=== PATIENT | female | born 1965 | race Caucasian/White ===

== ENCOUNTER 2024-02-01 09:15 | Outpatient (RCR) | payer BC, SELFPAY ==
--- NOTE | 2024-02-01 10:15 | BH.SGPN.GN ---
Behaviors/Verbalizations/Mental Status: []Pt alert and oriented, neatly dressed and groomed. Eye contact good. Motor activity appropriate. Speech within normal limits. Affect congruent, mood anxious. Thoughts linear, logical, no signs of hallucinations or delusions. Client Response/Progress/Benefit: [] Pt responded well to session, contributing to discussion, and engaged during the activity. Group identified the benefits of change which included: increased confidence, improving mental health, and making progress. Worked with the group to identify barriers to change, which included: uncomfortable emotions such as anxiety and fear, lack of energy, worried about what others will think, and fear of the unknown. Pt participated along with group in activity where they identified and discussed the emotions related to change. Pt connected with peers that one can have many conflicting emotions when faced with change. Benefited from increased awareness and understanding of emotions, benefits, and barriers related to change. Will continue PHP tx to prevent decompensation, improve daily functioning, and gain healthy coping skills. ? Narrative Note: []
--- NOTE | 2024-02-01 11:10 | BH.SGPN.GN ---
Behaviors/Verbalizations/Mental Status: [] Client alert and oriented, casually dressed and groomed. Eye contact good. Motor activity appropriate. Speech within normal limits. Affect congruent, mood depressed and anxious. Thoughts linear, logical, no signs of hallucinations or delusions. Client Response/Progress/Benefit: [] Client responded well to session, attentive. Did well to process activity and work with group to relate the strategies used to overcome barriers in the activity to managing change in own life. Client identified a change they would like to make as improving her self-talk. Client identified currently being in contemplation stage for this particular change. Client stated their goal is to practice using positive self-talk daily. Appeared to benefit from identifying a small goal to work towards. Client will continue PHP tx to prevent decompensation, decrease thoughts that lead to depressive symptoms and increase overall functioning. Narrative Note: []
--- NOTE | 2024-02-01 13:25 | BH.MTP ---
Master Treatment Plan Patient Information Program Physician:: Dr. Jarquin Primary Therapist:: Samia Mejia [facility] Psychiatric Diagnoses Psychiatric Diagnoses:: 1. Major depressive disorder, recurrent, severe without psychosis 2. Generalized anxiety disorder Diagnosis Code(s):: F32.2 Estimated LOS Estimated LOS (in weeks):: 1 Problem/Goal #1 Problem/Goal #1 Stated Goal:: Client will reduce depression, feelings of hopelessness, and anhedonia. Description of Barriers: Pt recently reporting sensitivities to different medications. Pt's apathy, anhedonia, anxious thoughts, and uncontrollable worries. Functional Impact: Patient is a 58-year-old female with a history of depression, anxiety and panic attacks who was referred by her outpatient counselor for worsening symptoms of depression and anxiety and inability to function at home or at work. The patient has had worsening symptoms of depression and anxiety since about 7 weeks ago after a severe panic attack. She has not worked part-time for the past 2 weeks due to her mental health symptoms. She was staying in bed all day long for the last 7 weeks. She endorses sadness, hopelessness, worthlessness, crying spells, anhedonia, biological disruption of appetite and has lost 10 pounds in 2 months. Objectives Objective #1: Stated Objective: Client will learn and utilize 2-3 healthy coping strategies to manage depressive symptoms. Interventions: Therapist will utilize CBT techniques to assist client with understanding the connection between thoughts, feelings and behaviors. Education will be provided on behavioral activation. Therapist will assist client in learning internal coping strategies to manage depressive symptoms, along with helping client identify triggers. Discharge Criteria: Client will have achieved this goal when can verbalize and has practiced at least 2 healthy coping strategies that successfully manage depressive symptoms. Target Date: 02/08/24 Problem/Goal #2 Problem/Goal #2 Stated Goal:: Stabilize anxiety level while increasing ability to function and decreasing ruminative thoughts on a daily basis. Description of Barriers: Pt recently reporting sensitivities to different medications. Pt's apathy, anhedonia, anxious thoughts, and uncontrollable worries. Functional Impact: Patient is a 58-year-old female with a history of depression, anxiety and panic attacks who was referred by her outpatient counselor for worsening symptoms of depression and anxiety and inability to function at home or at work. The patient has had worsening symptoms of depression and anxiety since about 7 weeks ago after a severe panic attack. She has not worked part-time for the past 2 weeks due to her mental health symptoms. She was staying in bed all day long for the last 7 weeks. She endorses sadness, hopelessness, worthlessness, crying spells, anhedonia, biological disruption of appetite and has lost 10 pounds in 2 months. Objectives Objective #1: Stated Objective: Client will learn and implement 2-3 calming skills to reduce overall anxiety and manage anxiety symptoms. Interventions: Therapist and group sessions will help client identify physiological warning signs of anxiety, increase awareness of thoughts that increase anxiety, and identify behaviors that reinforce anxious symptoms. Group and individual counseling will teach client calming skills to help manage anxious symptoms. Discharge Criteria: Client will have achieved this goal when can verbalize and consistently utilize at least 2 calming strategies that client reports help decrease anxious symptoms. Target Date: 02/08/24
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
--- NOTE | 2024-02-01 14:27 | BH.MDN_ITS ---
Multi-Disciplinary Note Note 60-min Individual: Time Started:: 12:05 Date: 02/01/24 Purpose of session/treatment goals addressed:: Purpose of session was to build rapport, gather background information, and establish goals for partial hospitalization program. Eye Contact:: Fair Motor Activity:: Restless Appearance:: Casual Speech:: Appropriate Mood:: Anxious, Depressed and Other (Tearful) Affect:: Labile Thoughts:: Linear, Logical and No evidence of hallucinations/delusions noted Staff Interventions:: psychoeducation on: (Cognitive triangle and behavior activation), CBT techniques, mindfulness skills (Reviewed), rapport building, strengths perspective, treatment planning, goal setting and taught coping skills Client Response:: Client shared she is feeling lost and hopeless which is why she is seeking treatment. Client reported she wants to get back to her. Client stated her baseline is being funny, socializing with others, family oriented, enjoying going to the [employer], cooking, and engaging in various hobbies. Client stated currently she is not doing any of those things because she is depressed, anxious, sad, feels like something is wrong with my mind, isolating, and no motivation. Client reported most days she is lying in bed or laying around doing nothing because she either is too anxious or too depressed. Client reported she does take a as needed anxiety med every morning which then puts her right back to sleep. Client stated but if she does not take that medication she will feel extremely nervous and anxious and shaky. Client shared she has a supportive and supportive children. Client describes her childhood as positive. Client stated her first experience of depression and anxiety was when she went through her divorce in 1998 after 11 years of marriage. Client stated she was then put on Celexa which allowed her to live a normal life and to seemingly stopped working in July 2023. Client reported that when she first had her severe panic attack in things started kind of decompensating slowly. Client stated her psychiatrist Dr. Walden left his practice and she started with Dr. Thomas in October 2023. Client reported she was put on new medication since the Celexa was not working 7 weeks ago and really does not think it is working. Client stated she has never been this depressed in her entire life. Client shared she does struggle with anxiety throughout her life especially severe worries about her children thinking something bad is going to happen to them. Client reported since her son moved 5 years ago to different state she would say about 8680% of the time during the day would worry about him. Client stated since struggling she does feel like her worries are consumed about if her kids are okay which does lead to reassurance seeking by reaching out to them. client stated she is not sure if there are any stressors that triggered some of these worsening mental health. 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 Therapist explained at this point it is most important to think about the here and now to improve her daily functioning and then when she is feeling a little more stable can explore possible stressors that they can work together to mitigate. Client connected with psychoeducation about cognitive triangle and behavior activation. Client seemed to connect with importance of engaging in at least 1 activity that she used to enjoy in order to activate any positive or more neutral emotions and thoughts. Client struggled with identifying one thing she could do today because she stated she just wants to go home and lay on the couch. Therapist reminded client that she reported she did not want to show up to [facility] today but is happy she got out of bed and did something different than what her depressed and anxious brain was telling her to do. Therapist encouraged client to either do one chore or one activity she used to enjoy to work on behavior activation. Risks/Concerns:: Denies suicidal ideation, plan, or intention. Future oriented. No history of suicide attempts. Progress Toward Goals/Plan:: No progress observed given first day in PHP. Client has had significant decompensation since her Celexa stopped working and the new medications that she was put on about 7 weeks ago per client are not working. Client stated she is not functioning at home with completing chores or getting anything done like cooking. Client stated she stopped going to meet her friends out for breakfast. Client is not excited to do anything in the upcoming summer which would include them going to very like house to spend time with family. Client reporting feeling less about her future because she does not think she can function if she continues to feel this way. Client to continue PHP to improve daily functioning, increase healthy coping, and prevent decompensation. Time Stopped:: 13:00
--- NOTE | 2024-02-02 09:00 | BH.SGPN.GN ---
Behaviors/Verbalizations/Mental Status: []Eye contact is fair. Motor activity is restless. Appearance is casual. Speech is Appropriate. Mood is anxious. Affect is congruent. Thoughts are linear and logical. No evidence of psychosis. Reviewed daily check in sheet and denies suicidal thoughts or intention. Client Response/Progress/Benefit: [] Client responded well to session AEB listening to others and sharing thoughts/feelings. Client reported this morning she woke up and felt extremely anxious so she did take her antianxiety medication this morning. Client reported yesterday after IOP she decided to stop to chat and hang out with one of her friends which she felt was really helpful. Client stated additional mental positive as going with her to run some errands. Client noted returning back to PHP today was a big win. Client noted to currently stressed and scared that she is not getting a better. Appeared to benefit from support from peers. Will continue PHP tx to improve daily functioning, increase healthy coping, and prevent decompensation. Narrative Note: []
--- NOTE | 2024-02-02 09:05 | BH.SGPN.GN ---
f she would like to share. Daily symptom tracker notes 4/5 for depression and anxiety. Tearful at times. Stated do other people cry here. Group was supportive and provided feedback/advice for her first day as well as encouragment which was beneficial. No progress noted as this was her first day. Will continue in PHP to maintain safety, stabilize mood, increase healthy coping, and improve functioning. Narrative Note: []
--- NOTE | 2024-02-02 10:05 | BH.SGPN.GN ---
Behaviors/Verbalizations/Mental Status: []Pt alert and oriented, casually dressed and groomed. Eye contact good. Motor activity appropriate. Speech within normal limits. Affect congruent, mood anxious and depressed. Thoughts linear, logical, no signs of hallucinations or delusions. Client Response/Progress/Benefit: []Pt was an active participant in group discussion and activity. Attentive during psychoeducation. Along with peers, pt was able to identify barriers to taking action in their life. Identified several symptoms and stressors that pt feels are holding them back from progress such as negative self-talk, not accepting her mental health issues, low self-confidence, avoidance, and prioritizing others before herself. Stated these things have kept pt from making healthy changes, seeking help, improving relationships, and being kinder to herself. Pt shared wanting to begin addressing the impact lack of acceptance has had on their ability to take action. Benefited from increased self-awareness of obstacles. Will continue PHP tx to improve mood management, promote skill application, and maintain safety. Narrative Note: []
--- NOTE | 2024-02-02 11:10 | BH.SGPN.GN ---
Behaviors/Verbalizations/Mental Status: []Pt alert and oriented, neatly dressed and groomed. Eye contact good. Motor activity appropriate. Speech within normal limits. Affect congruent, mood anxious. Thoughts linear, logical, no signs of hallucinations or delusions. Client Response/Progress/Benefit: [] Pt responded well to session, taking notes and participating in worksheet discussion. Pt connected with the discussion on motion vs action steps, and this helped pt learn how to set goals differently. Pt set a goal to be more optimistic about her treatment. Pt identified motion steps including buying a notebook to write out accomplishments and asking her to help her catch negative thoughts. Pt also made action steps which included writing down her wins during first group and each night writing down one thing she deserves credit for. Appeared to benefit from identifying a small goal to benefit mental health. Will continue PHP tx to prevent decompensation, improve daily functioning, and increase healthy coping skills. Narrative Note: []
--- NOTE | 2024-02-02 12:42 | BH.MDN_ITS ---
Multi-Disciplinary Note Note 45-min Individual: Time Started:: 12:01 Date: 02/02/24 Purpose of session/treatment goals addressed:: Purpose of session was to address goals 1 and 2 from MTP. Eye Contact:: Good Motor Activity:: Appropriate Appearance:: Casual Speech:: Appropriate Mood:: Anxious, Depressed and Other (tearful) Affect:: Labile Thoughts:: Linear, Logical and No evidence of hallucinations/delusions noted Staff Interventions:: thought challenging, CBT techniques, mindfulness skills, rapport building, strengths perspective, goal setting and taught coping skills Client Response:: Client reported she is feeling very anxious in her body today despite taking her PRN anxiety medication this morning. Client stated yesterday she went to visit a friend after PHP session yesterday. Client reported she hung out with her best friend for 1.5 hours and was able to enjoy herself. Client stated this is the first time she was social in at least 7 weeks. Client reported she also went with her to run errands instead of sitting around on the couch. Client stated she was able to spend some time on her porch last night getting fresh air. Client reported she accomplished putting a few dishes in the anime designer and starting it which made her feel a sense of pride. Client stated she has not been able to get that many things done in over 7 weeks. Client recognizes utilizing opposite action and behavior activation can improve her mood and keeps her from staying stuck in her negative ruminations. Client stated she does spend this considerable amount of time worrying about future events and worried about others. Client stated currently worrying about being invited to a open house gathering to see family member that is coming home from [place] for a week. Client stated she is unsure she would be able to be around that many people since she has not been social in a while. Therapist and client problem solved different ideas of what she could do to help decrease avoidance but also make the situation more attainable. Therapist also encouraged client to remind herself that this is not a worry she has to address today. Client and therapist discussed plan for today. Client stated she would like to get back to cooking and identified could start with the easy meal of making pasta and meatballs. Client stated she does have all of the ingredients necessary to make that meal tonight. Client stated by the end of the week she would like to be out to go to a small grocery store to get the ingredients to make one of her favorite comfort meals for her and her . Discussed possibility of client getting back to the gym just to work her upper body since she cannot deal with lower body work due to her hip issue that she will find answers for till the end of February when she has her specialist appointment. Discussed how body movement might help with her muscle tension in her shoulders and neck. Reviewed breathing and grounding tools as well to help with muscle tension and physical symptoms of anxiety. Risks/Concerns:: Denies suicidal ideation, intention, and plan. Future oriented. Family identified as protective factor. No access to weapons. Progress Toward Goals/Plan:: Progress noted with client being able to be social, accomplish a chore, and spent time outside yesterday which is something she has not done over 7 weeks. Client still reporting significant anxiety when she wakes up with shaking and the need to take a clonazepam in order to help her function throughout the day. Client tearful on and off throughout session stating feeling extremely depressed and anxious at the same time. Client trying to work on behavior activation by using opposite action to elicit positive emotions and thoughts. Client stated she did feel more positive emotions and less negative thoughts after accomplishing several things yesterday. Client to continue PHP to improve daily functioning, increase healthy coping skills, and prevent decompensation. Time Stopped:: 12:40
--- NOTE | 2024-02-03 10:30 | BH.NA_ITS ---
Physical Data Vital Signs Pulse Rate: 80 Blood Pressure: 145/93 Height/Weight Height: 1.7 m Weight:: 81.647 kg Weight in Pounds: 180.0 lbs Current Medication Compliance Medication Compliance Do you take your medication as prescribed?: Yes Nutritional History Appetite Nutritional Instructions: Describe your appetite:: Fair Additional nutritional information:: Client states she has lost about 10lbs in the last couple of months due to a decrease in appetite. Functional Assessment Sleep Pattern Describe any problems with sleeping: Client states with medications prescribed to her at bedtime, she sleeps about 7 hours per night. Sensory/Communication Assess Communication Problems Do you have difficulty understanding what people are saying?: No Medical Problems/History Musculoskeletal Conditions Musculoskeletal: Other (See comments) (client has been having right hip pain for about a year- recently had an MRI and was referred to a soft construction specialist that she will see next month. ) Pain Assessment Do you have acute or chronic pain?: Yes (right hip- not taking medication) Family History Family History (System 02/03/24 @ 09:42 by Deisi Hill) Other Anxiety Autoimmune disorder Cancer Colon cancer Osteoporosis Uterine cancer Surgical History Surgical History Have you had any surgeries? If so, list type and date:: Yes (hysterectomy) Substance Abuse Substance Abuse Please describe substance abuse in the last 30 days:: Client denies alcohol, tobacco or substance use. Client states she previously used to drink caffeine, but denies all caffeine use now. Mental Status Summary Mental Status Significant Findings/Observations on Appearance and Mood:: Client is alert and oriented x 4. Client is casually groomed with good hygiene. Client is cooperative with assessment. Client makes good eye contact. Client's voice has normal rate and volume. Client is tearful at times during assessment. Client makes logical associations and has normal processing. Client denies delusions/hallucinations. Client denies SI. Suicide Assessment Suicidal Ideation Are you currently or have you been suicidal in the past?: No Suicidal Intentional Rating Scale (SIRS): No suicidal thoughts (past or present) Physician Notification Past Psychiatric History MH Treatment Hx Past Psychiatric Medications:: Celexa (was on for over 20 years), Abilify, Trazodone, Prozac, Xanax Age of first mental health symptoms: Client has been on medication for her mental health for over 20 years (was first very anxious after divorce). Describe (age, circumstance, etc) any past hospitalizations: None. Current providers for mental health treatment (counselor, psychiatrist, child support case officer, etc.): Dr. Thomas for psychiatry, telehealth counselor Veronica Fall Risk Assessment Age Age: Less than 60 Mental Status Mental Status: Willing & able to ask for assistance when needed Physical Status Physical Status: No problems Impairments Impairments: None Elimination Elimination: Continent AND independent Gait or Balance Gait or Balance: Walks independently Hx of Falls History of falls in the past 6 months: No known history Medications/Substances Psychotropics:: Antidepressants, Antipsychotics and Anxiolytics (e.g. benzodiazepines) Medications/substances used within the past 24 hours or ordered to administer: 3 or more of the medications/substances listed above Total Score Total Points:: 2 RN Summary of Impressions Impressions Recommendations Impressions: Psychiatric Issues: generalized anxiety disorder, panic disorder Level of Care How do the client's current symptoms and functional deficits support need for this level of care?: Client presents to IOP/PHP with depression, anxiety, and recent panic attacks. Client states her panic attacks started in the fall, where her took her to the ER once because it was so intense. Client states she also had intense panic attacks in October and November and her mental health has spiraled since then. Client reports symptoms of depression (crying, hopelessness, isolation, anhedonia and decreased appetite and ADL's). Client states she feels her mental health has been worse while trialing new medications after her Celexa became ineffective. Client is tearful with assessment when talking about her mental health. Client denies SI. IOP/PHP will promote gains and prevent further decompensation while providing social support and skills training.
[2024-02-03 10:51] VITALS: BP 145/93; PULSE 80
--- NOTE | 2024-02-03 11:10 | BH.SGPN.GN ---
Behaviors/Verbalizations/Mental Status: [] Client alert and oriented, casually dressed and groomed. Eye contact good. Motor activity appropriate. Speech within normal limits. Affect congruent, mood depressed and anxious. Thoughts linear, logical, no signs of hallucinations or delusions. Client Response/Progress/Benefit: [] Client was an active participant throughout AEB contributing to discussion, providing personal examples, and taking notes. Client processed emotions felt in the activity and how they coped in the moment. Client provided input during discussion on the types of support our supports can provide. Client able to identify current support system and barriers that get in the way of using supports by drawing out their own support net. Client reported after identifying what type of supports they receive; they gained awareness that they could benefit from more emotional supports. Client identified steps to achieve this by challenging herself to ask for help with exposure goals from her . Client shared increasing emotional supports will help them become more more emotionally regulated as well. Client seemed to benefit from identifying the type of support client needs to work on improving. Client recommended to continue IOP tx to promote continued application self-care skills and increase behavior activation skills. Narrative Note: []
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
--- NOTE | 2024-02-03 13:31 | BH.MDN ---
Multi-Disciplinary Note Note 45-min Individual: Time Started:: 12:14 Date: 02/03/24 Purpose of session/treatment goals addressed:: Purpose of session was to address goals 1 and 2 from MTP. Eye Contact:: Good Motor Activity:: Restless Appearance:: Casual Speech:: Appropriate Mood:: Anxious and Depressed Affect:: Labile Thoughts:: Logical, Racing and No evidence of hallucinations/delusions noted Staff Interventions:: thought challenging, psychoeducation on: (anxious avoidance), CBT techniques, mindfulness skills, rapport building, strengths perspective, goal setting and taught coping skills (sitting with the uncomfortable, visualization to manage worries) Client Response:: Client stated today has been a struggle because she has been ruminating about the new medication changes made today will not work. Client reported she is just feeling extremely anxious Time Stopped:: 13:00
--- NOTE | 2024-02-03 13:35 | BH.DR.ITP ---
Initial Treatment Plan Patient Information Visit Information: ADMISSION DATE: EXPECTED LOS: 4-6 weeks Problems/Symptoms Problem #1:: Depression Symptom:: Sadness, guilt, hopelessness, worthlessness, biological disruption of appetite, low energy, anhedonia Problem #2:: Anxiety Symptom:: Worry, rumination, panic attacks
--- NOTE | 2024-02-04 09:05 | BH.SGPN.GN ---
Behaviors/Verbalizations/Mental Status: [] Eye contact good. Motor activity appropriate. Speech within normal limits. Affect congruent, mood depressed and anxious. Thoughts linear, logical, no signs of hallucinations or delusions. Reviewed client?s symptom tracker, denies SI, plan, or intent as of 02/04/2024. Client Response/Progress/Benefit: [] Client receptive of session, attentive and willing to process with group. Identified mental health ?wins? as challenging herself to use opposite action go to the Reception Clerk to get meat for their supper. Shared she has been struggling to do social things so this was a big step for her. Expressed feeling proud and even went on to clean and pack her lunch, which she identified as an additional win, as he has been a great support for her during this time. Shared feeling positive showing this gratitude through making him a meal. Identified current stressor as new she is being referred to a soft configuration management specialist for her hip. Did well to challenge her initial use of catastrophizing and identify other ways she can look at the news in a more encouraging light. Client appeared to benefit from group support and encouragement. Recommended continued PHP tx to continue to improve mood stability, promote consistent skill application, and prevent decompensation. Narrative Note: []
--- NOTE | 2024-02-04 10:10 | BH.SGPN.GN ---
Behaviors/Verbalizations/Mental Status: []Eye contact is good. Motor activity is appropriate. Appearance is casual. Speech is Appropriate. Mood is euthymic. Affect is full. Thoughts are linear and logical. No evidence of psychosis. Client Response/Progress/Benefit: [] Pt was an active participant in activity and taking notes during group discussion. Attentive during psychoeducation and interactive discussion on coping skills included why people use unhealthy skills. Group came up with list of unhealthy coping skills and pt identified personal ones as lying in bed, crying too much, and not practicing self-care. Group discussed the effects of how unhealthy coping skills can impact mental health in a negative way. Participated during experiential activity and was able to relate the activity to group topic regarding the benefits of developing strong internal and external support system. Benefited from increased understanding of unhealthy coping skills and the need for developing healthy internal and external coping skills. Pt will continue PHP tx to prevent decompensation, monitor medication changes, and improve daily functioning. ? Narrative Note: []
--- NOTE | 2024-02-04 11:10 | BH.SGPN.GN ---
Behaviors/Verbalizations/Mental Status: []Pt alert and oriented, casually dressed and groomed. Eye contact good. Motor activity appropriate. Speech within normal limits. Affect congruent, mood anxious and euthymic. Thoughts linear, logical, no signs of hallucinations or delusions. Client Response/Progress/Benefit: [] Pt responded well to session, taking notes and contributing when prompted. Group discussed the different categories of coping skills which included distraction, emotional release, grounding, self-love, and thought challenging.? Pt participated in creating a coping skills ?menu? from the five categories of coping skills. Pt's coping skill menu included: cooking, breathing, talking at therapy, visualization while breathing, being compassionate with self, and paying attention to distortions. Appeared to benefit from increasing repertoire of healthy coping skills. Will continue PHP tx to prevent decompensation, improve daily functioning, and reduce intensity of symptoms. Narrative Note: []
--- NOTE | 2024-02-04 13:51 | BH.MDN ---
Multi-Disciplinary Note Note 45-min Individual: Time Started:: 12:00 Date: 02/04/24 Time Stopped:: 12:45
--- NOTE | 2024-02-05 09:05 | BH.SGPN.GN ---
Behaviors/Verbalizations/Mental Status: [] Eye contact is good. Motor activity is appropriate. Appearance is casual. Speech is Appropriate. Mood is anxious. Affect is congruent. Thoughts are linear and logical. No evidence of psychosis. Reviewed daily check in sheet and no reports of suicidal ideations or intent. Client Response/Progress/Benefit: [] Pt participated at times during the group discussion. Attentive. Daily symptom tracker notes /5 for depression and anxiety. Able to identify mental health wins and healthy habits. Proud of herself for completing first week of PHP level of care. I made it everyday. Emotion for today is hopeful. Notes that support from groups, education, and recent discussion with program psychiatrist (Starting on new meds). With increased support she has noticed that her crying spells have decreased and she is feel more hopeful. Progress noted per pt report. Benefited from group support, encouragement, and feedback. Will continue in PHP to maintain safety, prevent decompensation, increase healthy coping, and improve functioning. Narrative Note: []
--- NOTE | 2024-02-05 09:37 | BH.MDN ---
Multi-Disciplinary Note Note 45-min Individual: Time Started:: 08:20 Date: 02/05/24 Purpose of session/treatment goals addressed:: Purpose of session was to address goals 1 and 2 from MTP. Eye Contact:: Good Motor Activity:: Appropriate Appearance:: Casual Speech:: Appropriate Mood:: Euthymic and Anxious Affect:: Congruent Thoughts:: Linear, Logical, Circular (at times) and No evidence of hallucinations/delusions noted Staff Interventions:: thought challenging, CBT techniques, mindfulness skills, strengths perspective, goal setting and taught coping skills Client Response:: Client stated she was able to have an overall good evening yesterday. Client stated she was able to be social with her [id number] and cherylon who were visiting to help clients . Antonio stated her noted and she recognized she did not cry very much last night which is unusual for her for the last seven weeks. Client reported on a positive note she was able to laugh last night and did feel more in the moment. Client became a little tearful when thinking about how much progress she's made in five days since being in [facility]. Client reflected on how she hasn't been social, hasn?t been leaving her bed, not making dinner, and not being able to laugh in the last seven weeks. Client reported she decided to not go to a social gathering tomorrow because she thinks it will be too much for her. Client stated instead will go to her parents to help clean up their outside. Client shared her goal for tonight is to cooker casing which is something she has been doing better with throughout this week. Discuss possibility of planning a meal and which she'll have to go get ingredients at the store but to go to the store with her to slowly incorporate getting back to grocery stores. Client open to trying this because she recognizes she has to decrease avoidance of anxious situations. Client agreeable throughout the weekend she will establish several small goals to focus on just like she's been doing the entire [facility] [place] week. Client stated at this point she would like to continue [facility] next week because she finds it helpful to have structure and routine and is fearful she's going to go back to lying in bed all day if she doesn't come. Risks/Concerns:: Denies suicidal ideation, plan, or intention to date. Future oriented. Progress Toward Goals/Plan:: Progress noted with client being able to be social last night which is something she has not done for 7 weeks prior to starting PHP. Client reported she was able to manage her anxiety in the moment, which helped her stay present. Client stated her is starting to note positive changes in client over the last few days in PHP. Client's anxiety still is preventing her from going to a family gathering this weekend and avoids going to grocery stores. Plan is for client to continue PHP to promote use of healthy coping skills, continue building healthy coping skills, and prevent decompensation. Time Stopped:: 08:59
--- NOTE | 2024-02-05 10:10 | BH.SGPN.GN ---
Behaviors/Verbalizations/Mental Status: [] Eye contact is good. Motor activity is appropriate. Appearance is casual. Speech is Appropriate. Mood is anxious. Affect is congruent. Thoughts are linear and logical. No evidence of psychosis. Client Response/Progress/Benefit: [] Pt receptive of session, actively engaged throughout AEB taking notes, providing input, and contributing in small group discussion. Appeared to connect with group topic of automatic thoughts and cognitive distortions and the impact of thought patterns on mental health, coping behaviors, and relationships. This particular group is very heavy on psychoeducation however pt appeared to connect with distortions and how they can impact functioning. Pt appeared to benefit from gaining insight on distorted thinking patterns and how this impacts overall mental health. Will continue PHP to prevent decompensation, stabilize anxiety, improve functioning, and increase healthy coping skills.
--- NOTE | 2024-02-05 11:10 | BH.SGPN.GN ---
Behaviors/Verbalizations/Mental Status: []Pt alert and oriented, neatly dressed and groomed. Eye contact good. Motor activity appropriate. Speech within normal limits. Affect congruent, mood depressed. Thoughts linear, logical, no signs of hallucinations or delusions Client Response/Progress/Benefit: [] Pt was an active participant during group discussion. Pt was placed in a smaller group and participated in combatting example distortions with peers. Pt was engaged in the smaller group, participated in group interactions to brainstorm answers, and appeared to be comprehending cognitive distortions. Stated she connects a lot with mental filter, catastrophizing, and jumping to conclusions. Pt gave example of jumping to conclusions and using ?shoulds?. Benefited from gaining further insight and awareness of cognitive distortions as well as practicing ways to reframe and challenge thoughts. Will continue in PHP tx to prevent decompensation, gain healthy coping skills, and improve daily functioning. ? Narrative Note: []
--- NOTE | 2024-02-08 09:05 | BH.SGPN.GN ---
Behaviors/Verbalizations/Mental Status: [] Eye contact is good. Motor activity is appropriate. Appearance is casual. Speech is Appropriate. Mood is depressed. Affect is congruent. Thoughts are linear and logical. No evidence of psychosis. Reviewed daily check in sheet and no reports of suicidal ideations or intent. Client Response/Progress/Benefit: [] Pt participated at times during the group discussion. Attentive. Daily symptom tracker notes 12/14 for depression and anxiety. States I'm all over the board noting that her emotions are intense. Tearful. how did I get like this. According to pt the majority of her weekend went well. Utilized opposite-action, was engaged, and got things done. However Thursday was a horrible day in which she spend time laying around and ruminating. I did nothing all day. Shared recent stressors regarding her hip shah and possible surgery however feels I'm not mentally stable enough to go through surgery. Benefited from group support, encouragement, and feedback. Will continue in PHP to improve functioning, prevent decompensation, and stablize mood. Narrative Note: []
--- NOTE | 2024-02-08 10:15 | BH.SGPN.GN ---
Behaviors/Verbalizations/Mental Status: []Pt alert and oriented, neatly dressed and groomed. Eye contact good. Motor activity appropriate. Speech within normal limits. Affect congruent, mood depressed. Thoughts linear, logical, no signs of hallucinations or delusions. Client Response/Progress/Benefit: [] Pt was engaged and an active participant in group discussions. Attentive during psychoeducation and participated in group activity. Group discussed what contributes to a person?s perspective and how perspective can positively or negatively impact mental health treatment. Participated in group discussion on things that can interfere with perspective and pt reflected on their perspective today vs when she started IOP. Pt stated her perspective is becoming more hopeful, but she still defaults to being pessimistic and not giving herself credit. Pt is recognizing this more and is actively working on combatting this. Pt appeared to benefit from increasing awareness of different perspectives and how they can affect mental health. Pt will continue PHP tx to prevent decompensation, further reduce negative thinking patterns, and monitor mood. Narrative Note: []
--- NOTE | 2024-02-08 11:15 | BH.SGPN.GN ---
Behaviors/Verbalizations/Mental Status: []Pt alert and oriented, casually dressed and groomed. Eye contact good. Motor activity appropriate. Speech within normal limits. Affect congruent, mood dysthymic and anxious. Thoughts linear, logical, no signs of hallucinations or delusions. Client Response/Progress/Benefit: []Pt was attentive and contributed to group discussion. Pt worked with group to identify strategies that can help with challenging negative perspective. Pt completed strengths exploration worksheet, identifying bravery, forgiveness, empathy, and patience as personal strengths. Pt able to acknowledge how these strengths are helping pt and can continue to help pt in mental health journey. Pt identified wanting to work on applying thought challenging skills to accept her diagnosis and lean on patience to aid in waiting for medications to take effect. Benefited from identifying personal strengths and strategies for enhancing use of identified strengths. Pt will continue IOP tx to work on application of stress management skills, improve mood stability, and prevent decompensation. Narrative Note: []
--- NOTE | 2024-02-08 15:13 | BH.MDN_ITS ---
Multi-Disciplinary Note Note 30-min Individual: Time Started:: 12:10 Date: 02/08/24 Purpose of session/treatment goals addressed:: Purpose of session was to address goals 1 and 2 from MTP. Eye Contact:: Good Motor Activity:: Appropriate Appearance:: Neat Speech:: Appropriate Mood:: Anxious and Depressed Affect:: Constricted (tearful) Thoughts:: Circular and No evidence of hallucinations/delusions noted Staff Interventions:: thought challenging, CBT techniques, mindfulness skills, strengths perspective and goal setting Client Response:: Pt responded well to session, open to meeting with therapist as pt's usual PHP therapist was out of the office. Pt stated she had an okay weekend, but yesterday was a bad day. Pt stated she found out that she will need surgery for her hip because there is a tear. Pt stated yesterday she ruminated most of the day on this and kept thinking what if my mental health doesn't get better, I need that surgery. Pt receptive to thought challenging techniques and realized that there were good moments and bad moments yesterday. Pt gave herself credit for not laying in bed all day and for getting up and showering and going outside with her . Pt also receptive to practicing dialectical thinking to help pt have a more realistic outlook towards progress in mental health treatment. Pt did share she accomplished her goals of cooking and she was able to be around her parents all day without crying. Pt stated she is having a hard time with thinking about how she used to function and accepting how she is functioning now. Pt receptive to practicing self- compassion and setting more goals. Pt has a goal to go to the meat market today and cook meatloaf. Pt also shared she wants to try and go to work for a few hours tomorrow and see if this helps her mood. Pt stated her outpatient provider advised against this, but pt described work as a place that gives her purpose and distraction. Pt understands that if it goes poorly, so is able to stay off work. Risks/Concerns:: Pt denies any suicidal ideations, plan, or intent. Progress Toward Goals/Plan:: Progress noted as pt reports she was able to keep it together when she was around her parents this weekend. Pt also made dinner, went walking with her , and did not lay in bed all day when she was depressed yesterday. Pt continues to struggle with negative thought patterns that get stuck and results in pt ruminating all day. Pt also reports hopelessness today triggered by learning she will need surgery for her knee. Pt responds well to thought challenging and goal setting. Pt will continue PHP tx to further improve mood, increase application of healthy coping skills, and improve daily functioning. Time Stopped:: 12:45
--- NOTE | 2024-02-09 09:05 | BH.SGPN.GN ---
Behaviors/Verbalizations/Mental Status: [] Eye contact is good. Motor activity is appropriate. Appearance is casual. Speech is Appropriate. Mood is euthymic. Affect is full. Thoughts are linear and logical. No evidence of psychosis. Reviewed daily check in sheet and no reports of suicidal ideations or intent. Client Response/Progress/Benefit: [] Pt was an active participant in group discussions. Attentive. Daily symptom tracker noted 2/5 for depression and anxiety. Able to identify healthy habits and mental health wins. Emotions not as depressed. Shared with the group that she is utilizing mindfulness and visualization skills which had been helpful. Increased motivation and engagement. Decreased isolation. Group is helping me. Completing responsibilities and goals by myself. 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 Progress noted per pt report. Benefited from group support, encouragement, and feedback. Will continue in PHP to prevent decompensation, stabilize mood, and improve functioning. Narrative Note: []
--- NOTE | 2024-02-09 10:10 | BH.SGPN.GN ---
Behaviors/Verbalizations/Mental Status: []Eye contact is fair. Motor activity is appropriate. Appearance is casual. Speech is Appropriate. Mood is anxious and depressed. Affect is constricted. Thoughts are linear and logical. No evidence of psychosis. Client Response/Progress/Benefit: []Pt participated during the group discussion. Attentive during psychoeducation and actively engaged during experiential activity. Participated during interactive discussion on aspects of fixed mindset. Group identified several aspects of fixed mindset which include: inflexible, belief that one cannot grow, absolute thinking, and all of one's skills, traits, and behaviors can't change. Group identified personal examples of fixed thinking in which pt shared personal fixed thoughts as: my meds won't work, and I've lost myself. Benefited from increased understanding of personal fixed mindsets and how they can impact mental health. Will continue in PHP to improve daily functioning, increase healthy coping skills, and prevent decompensation.
--- NOTE | 2024-02-09 11:10 | BH.SGPN.GN ---
Behaviors/Verbalizations/Mental Status: []Pt alert and oriented, casually dressed and groomed. Eye contact good. Motor activity appropriate. Speech within normal limits. Affect congruent, mood content. Thoughts linear, logical, no signs of hallucinations or delusions. Client Response/Progress/Benefit: [] Pt was an active participant during activity and discussion. Pt did well to remain attentive and participate as group worked on identifying characteristics and benefits of adopting a growth mindset. Worked with fellow participants in reframing the example fixed thoughts into growth mindset thoughts. Pt worked on changing own fixed thought and reframed the thought to ?my real personality is just gone for a bit, but it?s still in there.? Pt appeared to benefit from working in small groups to challenge own thoughts and help peers. Pt will continue PHP tx to promote mood stability, further reduce negative thought patterns, and improve functioning. Narrative Note: []
--- NOTE | 2024-02-09 14:41 | BH.MDN ---
Multi-Disciplinary Note Note 45-min Individual: Time Started:: 12:00 Date: 02/09/24 Purpose of session/treatment goals addressed:: Purpose of session was to address goals 1 and 2 from MTP. Eye Contact:: Good Motor Activity:: Appropriate Appearance:: Casual Speech:: Appropriate Mood:: Euthymic and Anxious Affect:: Congruent and Other (tearful at times) Thoughts:: Linear, Logical and No evidence of hallucinations/delusions noted Staff Interventions:: CBT techniques, mindfulness skills, strengths perspective, goal setting and taught coping skills (providing readings about managing intrusive anxious thoughts/worries) Client Response:: Client reported improved mood today and feeling proud of herself for being able to accomplish her goals from yesterday. Client stated she was able to plan out to dinner's and go to the grocery store to get the ingredients necessary to make meals. Client reported she has not been able to go to a grocery store and over 7 weeks due to her anxiety. Client utilize techniques discussed in individual therapy of using a fidget to help ground her and used her 5 senses to help manage anxiety in the moment. Client reported going to the grocery store was not as bad as what her anxiety was making out to be. Client stated she was feeling upset with herself for laying in bed during the morning on Thursday because she was feeling down and depressed for no apparent reason. Therapist help client challenge negative thoughts about herself and explained how she broke the depressive cycle by choosing to get out of bed and get some things done. Client reported she continues to struggle with constant worry about her son who lives out of state. Client stated she has been doing better with not calling him as frequently because she recognizes she is seeking reassurance which is not helping her anxiety and worry about him. Client stated he did reach out to let her know he was working on her resume because he does want to move back to [place]. Client reported she had been urged to call him and talk to him about it but was able to challenge her response to just be supportive of him. Client became tearful when talking about her son and realizes this is something she really needs to work on because she is been worrying about him since he moved out of state 5 years ago. Client stated her made a comment the other day that she feels like her constant worry about her son also has been playing a role in her current mental struggle. Reviewed techniques that can help manage uncontrollable worry. Therapist provided client with readings on various techniques to help manage intrusive anxious thoughts and worries. Risks/Concerns:: Denies suicidal ideation, plan, or intention. Future oriented. Progress Toward Goals/Plan:: Progress noted client being able to manage her anxiety to go to the grocery store to get a few things yesterday. Client slowly working up to being able to plan out her entire grocery list for the week like she used to be but is starting to show progress. Client's anxiety continues to hold her back from socializing beyond with certain family members. Client noticing decrease uncontrollable crying, decreased shaking, improved ability to be in the moment, and able to cook meals again. Plan is for client to continue PHP to promote utilization of healthy coping skills, improve daily functioning, and prevent decompensation. Time Stopped:: 12:40
== END 2024-02-09 23:59 ==
LOC: BHPHP 09:15
PROVIDERS: PCP Family Medicine; Referring Provider Psychiatry & Neurology Psychiatry; Visit Provider Psychiatry & Neurology Psychiatry
DX: F33.2 Major depressive disorder, recurrent severe without psychotic features (principal); F41.1 Generalized anxiety disorder; G89.29 Other chronic pain; M25.559 Pain in unspecified hip; Z79.899 Other long term (current) drug therapy
CPT/HCPCS: H0035; 90832; 90834; 90837; G0410

== ENCOUNTER → 2024-02-05 | Outpatient (CLI) | payer BC, SELFPAY ==
[2024-02-05 13:34] LABS: Vitamin D,25 Hydroxy 29.7 ng/mL
[2024-02-05 13:37] LABS: Thyroid Stim Hormone (TSH) 1.26 uIU/mL (0.358-3.74)
== END | disposition home or self-care (01) ==
PROVIDERS: PCP Family Medicine; Referring Provider Psychiatry & Neurology Psychiatry; Visit Provider Psychiatry & Neurology Psychiatry
DX: E55.9 Vitamin D deficiency, unspecified (principal)
CPT/HCPCS: 36415; 82306; 84443

== ENCOUNTER 2024-02-10 06:34 | Outpatient (RCR) | payer BC, SELFPAY ==
[2024-02-10 00:33] VITALS: BP 145/93; PULSE 80
--- NOTE | 2024-02-10 09:01 | BH.SGPN.GN ---
Behaviors/Verbalizations/Mental Status: [] Eye contact is good. Motor activity is appropriate. Appearance is casual. Speech is Appropriate. Mood anxious. Affect is congruent. Thoughts are linear and logical. No evidence of psychosis. Reviewed daily check in sheet and pt denies suicidal ideation, plan, intention. Client Response/Progress/Benefit: [] Pt was an active participant in group discussions. Attentive. Patient shared her emotions today is encouraged. Patient stated mental positive as getting to see psychiatrist today. Client noted her stressor is anxious what if thoughts that changes do not help her. Client stated mental has been able to go to work last night for the time in several weeks and it went really well additional mental positive as being able to pivot and adapt at when her plan for the evening did not go as expected. Benefited from group support, encouragement, feedback. Will continue in PHP to improve daily functioning, improve healthy coping skills, and prevent decompensation.
--- NOTE | 2024-02-10 10:10 | BH.SGPN.GN ---
Behaviors/Verbalizations/Mental Status: []Pt alert and oriented, appropriate grooming/appearance. Eye contact good. Motor activity appropriate. Speech within normal limits. Affect congruent, mood anxious and content. Thoughts linear, logical, no signs of hallucinations or delusions. Client Response/Progress/Benefit: []Pt was an active participant in group discussions. Attentive during psychoeducation. Contributed during interactive discussions in which peers attempted to define crisis. Pt identified examples of potential crisis. Group also worked together to identify unhealthy responses to crisis which included; isolation, self-harm, substance abuse, avoidance, and distraction. Pt identified personal warning signs as increased negative thinking, difficulty sleeping, and crying spells. Benefited from increased understanding of crisis and awareness of personal responses to crisis. Pt will continue IOP tx to reduce ruminating thoughts, increase healthy coping, and prevent decompensation. Narrative Note: []
--- NOTE | 2024-02-10 11:10 | BH.SGPN.GN ---
Behaviors/Verbalizations/Mental Status: []Eye contact is good. Motor activity is appropriate. Appearance is casual. Speech is Appropriate. Mood is content and anxious. Affect is congruent. Thoughts are linear and logical. No evidence of psychosis. Client Response/Progress/Benefit: [] Pt was an active participant in group discussions. Attentive during psychoeducation. In small group pt along with peers developed an active plan for their crisis warning signs. Pt identified three crisis warning signs as well as an action plan for each. One crisis warning sign was negative intrusive thoughts. Pt identified coping skills to help with this such as: remind herself thoughts are thoughts, not facts, use relaxation techniques, and try to think of positive thoughts she knows are true. Benefited from increased awareness of crisis warning signs and by developing crisis intervention strategies. Will continue in PHP to prevent decompensation, increase skill application, and promote mood stability. ? Narrative Note: []
--- NOTE | 2024-02-10 12:25 | PCM.BH.PN ---
Progress Note Progress Note: History of Present Illness/Interim History: The patient is a 58-year-old , female with a history of depression, anxiety and panic attacks who is seen in follow-up at the [facility] behavioral health PHP program. I last saw the patient 1 week ago and at that time the Cymbalta was decreased due to side effects and we started her on Paxil 10 mg daily. The patient states that she has tolerated the medication changes well. She feels her tremor is much less now. She stopped the daytime Klonopin and that has helped her be less tired and able to stay up longer during the day. According to staff she has been consistent in attendance and engaged in the program and made a little progress. She feels she is doing well and feels better. She is much less weepy although she still cries at times but no sobbing episodes like she had before. Her noticed also that she is doing much better. She has been able to get out of bed easier and her appetite has improved in the past week. She still has some intrusive thoughts and worries about her youngest son being okay. She still has some sadness and occasional hopelessness. She denies passive thoughts of , plan for suicide, suicidal ideation, homicidal ideation, hallucinations, delusions. Current Psychiatric Medications: [] Paxil 10 mg p.o. daily (x 1 week); Klonopin decreased to 1 mg p.o. nightly; Cymbalta 30 mg p.o. daily (decreased 1 week ago); trazodone 100 mg p.o. nightly; Seroquel 12.5 mg p.o. twice daily (x 3 weeks now) Mental Status Examination: [] The patient is a 58-year-old female who is casually dressed and groomed with good hygiene and appears normal for stated age. She has no psychomotor agitation or retardation and is ambulatory with a normal gait. Eye contact is good and speech is normal rate and rhythm and fluent with no pressure. Mood is depressed. Affect is constricted. Thought process is goal-directed and organized. Thought content: There is still some hopelessness but less than before. There is no evidence of passive thoughts of , suicidal ideation, plan for suicide, homicidal ideation, hallucinations, delusions or symptoms of sanket. Reality testing is intact. Judgment is intact. Insight Limited but some present Diagnoses: [] 1. Major depressive disorder, recurrent, severe without psychosis 2. Generalized anxiety disorder 3. Chronic hip pain Plan: [] The patient will continue continue the PHP as the structure, support, education and group therapy will hopefully prevent worsening of the patient's symptoms. She felt safe during the interview and if it anytime she does not feel safe she agrees to let us know or go to the emergency room. The risk, options, possible complications and side effects of the medications were again discussed with the patient and she understands accepts these. TSH and vitamin D were essentially normal although vitamin D was low normal and patient agrees to take a low-dose [id number] from her pharmacy for this. She will continue to find some way to exercise using her arms and be careful not to worsen her hip injury. The patient agrees to increase her Paxil to 20 mg p.o. daily tomorrow as planned and will discontinue her Cymbalta in 1 week. She will continue to follow-up with her outpatient providers and I will see the patient in follow-up in 1 week while she is in the PHP.
--- NOTE | 2024-02-10 14:37 | BH.MDN ---
Multi-Disciplinary Note Note 30-min Individual: Time Started:: 12:01 Date: 02/10/24 Purpose of session/treatment goals addressed:: Purpose of session was to address goals 1 and 2 from MTP. Eye Contact:: Good Motor Activity:: Appropriate Appearance:: Casual Speech:: Appropriate Mood:: Euthymic and Anxious Affect:: Congruent and Other (tearful at times) Thoughts:: Linear, Logical and No evidence of hallucinations/delusions noted Staff Interventions:: thought challenging, CBT techniques, mindfulness skills, strengths perspective and goal setting Client Response:: Client reported feeling proud of herself for making it to her 3-hour work shift yesterday which is the first time she has been back to work in 3 weeks. Client reported she really felt happy to be back and found it was really helpful for her. Client stated next week she plans to go back on Thursday and Thursday for her 3-hour shifts. Client reported she had been extremely anxious prior to getting to work but once she got there really felt much calmer and able to manage her anxiety. Client stated she is feeling somewhat anxious after meeting with [facility] psychiatrist because she fears her new medication is not going to completely work. Client responded well to therapist helping her challenge negative and irrational fears. Client reported she is starting to see some glimpses of her baseline self but is having a hard time with anxious thoughts that she will never get back to her true self. Client reported she did read the provided material from yesterday session about strategies to manage intrusive anxious thoughts. Client stated she found the information to be helpful to have written down so she can review it and agreed to start practicing the skills. Therapist also encouraged client to practice progressive muscle relaxation today because it can help with reducing anxious thoughts while trying to fall asleep. Client is reporting some anxiety about going to their [place] this weekend because she does not want to ruin the time for her . Client able to challenge negative thoughts with assistance from therapist. Client decided she will not go to the social gathering at the [employer] this weekend because she is afraid it would be too much. Risks/Concerns:: Denies suicidal ideation, plan, and intention. Future oriented. Progress Toward Goals/Plan:: Progress noted with client reporting less shakiness, decreased tearfulness, improve functioning with cooking meals, getting out of bed, and engaging with some family. Client was able to return to her 3-hour shift at work yesterday with success. Client has been able to go to a grocery store. Client starting to get back some of her daily functioning but still has constant worry about various topics but especially about her younger son. Client is starting to learn strategies to help her manage this worry and is focused on applying the skills. Plan is for client to discharge from [facility] on 02/12/24 and will start IOP the following week. Time Stopped:: 12:30
--- NOTE | 2024-02-11 09:05 | BH.SGPN.GN ---
Behaviors/Verbalizations/Mental Status: [] Eye contact is good. Motor activity is appropriate. Appearance is casual. Speech is Appropriate. Mood is depressed . Affect is congruent. Thoughts are linear and logical. No evidence of psychosis. Reviewed daily check in sheet and no reports of suicidal ideations or intent. Client Response/Progress/Benefit: [] Pt was an active participant in group discussion. Attentive. Daily symptom tracker notes 10/16 for depression and anxiety. Emotion for today is indifferent. Shared that she had a medication changes yesterday and today is feeling tired. Increased rumination and over-thinking yesterday which can lead to mental health decompensation and isolation. She put significant effort into reframing/challenging thoughts and utilizing other skills (behavioral activation, acceptance) and overall believes that the skills were beneficial in prevent decompensation.Progress noted. Will continue in PHP to prevent decompensation, stabilize mood, and improve functioning. Narrative Note: []
--- NOTE | 2024-02-11 10:10 | BH.SGPN.GN ---
Behaviors/Verbalizations/Mental Status: []Pt alert and oriented, casually dressed and groomed. Eye contact good. Motor activity appropriate. Speech within normal limits. Affect congruent, mood depressed, anxious. Thoughts linear, logical, no signs of hallucinations or delusions. Client Response/Progress/Benefit: [] Pt connected with topic of anxiety and participated throughout, providing input and taking notes. Participated throughout interactive discussion defining anxiety and identifying cognitive and physiological symptoms of anxiety. Group discussed how anxiety can prevent them from trying new things. Pt identified their physical signs of anxiety as: headache, loss of sleep, restlessness, and increase heart rate. Pt identified safety behaviors as: checking behaviors, canceling plans, and over-researching. Benefited from increased awareness and insight on anxiety and its impact. Pt will continue IOP tx to prevent decompensation, improve daily functioning, and increase self-confidence. Narrative Note: []
--- NOTE | 2024-02-11 11:10 | BH.SGPN.GN ---
Behaviors/Verbalizations/Mental Status: []Pt alert and oriented, neatly dressed and groomed. Eye contact good. Motor activity appropriate. Speech within normal limits. Affect congruent, mood euthymic. Thoughts linear, logical, no signs of hallucinations or delusions. Client Response/Progress/Benefit: [] Pt was an active participant AEB pt providing input and listening attentively to peers. Attentive during psychoeducation on mindfulness coping skills and their impact on reducing anxiety and improving overall mental health wellness. Group was able to identify self-soothing and mind-based coping skills which included: 5-senses, meditation, deep breathing, TIPP, thought challenging, and progressive muscle relaxation. Pt also participated with peers in practicing mindfulness skills in session. Pt would like to work on 4x4x4 deep breathing to manage anxiety. Appeared to benefit from increasing repertoire of anxiety reduction skills. Pt will continue in PHP tx for one more day to reinforce healthy coping skills and help transition to IOP level of care. Narrative Note: []
--- NOTE | 2024-02-11 14:54 | BH.MDN_ITS ---
Multi-Disciplinary Note Note 30-min Individual: Time Started:: 12:05 Date: 02/11/24 Purpose of session/treatment goals addressed:: Purpose of session was to address goals 1 and 2 from MTP. Eye Contact:: Good Motor Activity:: Appropriate Appearance:: Neat Speech:: Appropriate Mood:: Euthymic Affect:: Congruent Thoughts:: Linear, Logical and No evidence of hallucinations/delusions noted Staff Interventions:: thought challenging, CBT techniques, strengths perspective, goal setting and taught coping skills Client Response:: Pt responded well to session, open to meeting with therapist while her normal therapist is out of the office. Pt went back to work part-time for a few hours on Thursday and pt shared this went really well. Pt felt that it was not overwhelming and time went fast. Pt feels that it might be harder if work is slow because then I'd have more time to think but she is excited to go back next week. Pt stated she has also noticed herself using positive self-talk which has helped pt get back into grocery shopping and helped pt go to her family boat. Pt shared she is overall less weepy and feeling more hopeful. Pt does not quite feel like herself, but there are parts of me coming back. Pt wants to continue working on making dinners and meal prepping as this has given her more motivation and sense of accomplishment. Pt stated she is anxious about dropping down to IOP level of care because she is worried her anx iety will get high on the days she does not come to IOP. Pt is looking into different things she can do to stay busy and she is planning to volunteer at the [employer]. Pt's homework for the night is to cook and mow some of the yard. Risks/Concerns:: Pt denies any suicidal ideations or thoughts of . Progress Toward Goals/Plan:: Pt continues to make progress towards her tx goals AEB pt's self-report of reduced crying, using positive self-talk, and successful return to work on day this week. Pt stated she has also been cooking again and meal prepping. Pt's last day of PHP tx will be tomorrow and pt will step down to IOP level of care. Pt can benefit from ongoing tx as pt's medications recently were changed, she is still reporting symptoms of anxiety and depression, and she can further improve daily functioning. Time Stopped:: 12:30
--- NOTE | 2024-02-12 09:00 | BH.SGPN.GN ---
Behaviors/Verbalizations/Mental Status: [] Eye contact good. Motor activity appropriate. Speech within normal limits. Affect congruent, mood dysthymic. Thoughts linear, logical, no signs of hallucinations or delusions. Reviewed client?s symptom tracker, pt denies SI, plan, or intent as of 02/12/2024. Client Response/Progress/Benefit: [] Client receptive of session, attentive and willing to process with group. Identified mental health ?wins? today as continuing to use opposite action and positive self-talk to be productive and complete tasks around the house. Additional win noted as mowing the lawn which she has recently been having her do. Pt reports using headphones and viewing this as self-care time rather than a chore has been helpful. Current stressor noted as general increased anxiety about bumping down to IOP level of care next week and not knowing what to do with her free time the days she is not here. Pt receptive of several suggestions from the group. Recommended to drop to IOP tx to continue to promote mood stability, as well as consistent skill application, and prevent decompensation. Narrative Note: []
--- NOTE | 2024-02-12 10:20 | BH.SGPN.GN ---
Behaviors/Verbalizations/Mental Status: []Pt alert and oriented, casually dressed and groomed. Eye contact poor. Motor activity appropriate. Speech within normal limits. Affect congruent, mood depressed. Thoughts linear, logical, no signs of hallucinations or delusions. ? Client Response/Progress/Benefit: []Pt responded well to session, attentive and engaged. Pt participated in activity where pts had to guess the celebrity with a known mental health diagnosis and this led to discussion on self-stigma. Group participated in the discussion defining stigma as well as what stigma has kept pt's from doing in their lives. Pt did a lot of nodding during group, but she did not share any personal examples of internal stigma. Pt worked with peers to begin discussion of what reinforces stigma and this was discussed further in the next group. Pt appeared to benefit from learning about the different types of stigma as well as gaining awareness of how stigma as personally impacted pt. Pt will continue IOP tx to prevent decompensation, improve daily functioning, and reduce isolation and avoidance. Narrative Note: []
--- NOTE | 2024-02-12 11:15 | BH.SGPN.GN ---
Behaviors/Verbalizations/Mental Status: []Client alert and oriented, casually dressed and groomed. Eye contact good. Motor activity appropriate. Speech within normal limits. Affect congruent, mood euthymic. Thoughts linear, logical, no signs of hallucinations or delusions. Client Response/Progress/Benefit:?[] Client engaged participant AEB participating in the activity, providing input during small group discussion, and listening attentively to others. Client appeared to connect with discussion in the benefits of addressing mental health stigma which included: improved relationships, increased willingness to seek help, increased happiness, and improved confidence. Group brainstormed strategies to combat social and perceived stigma. ?Client shared one thing she can personally do to combat stigma is to challenge negative thoughts that she is a burden. Appeared to benefit from increasing awareness of strategies to combat stigma. Will continue IOP tx to continue use of healthy coping skills,
--- NOTE | 2024-02-12 13:23 | BH.MDN ---
Multi-Disciplinary Note Note 45-min Individual: Time Started:: 12:05 Date: 02/12/24 Time Stopped:: 12:50
--- NOTE | 2024-02-12 13:24 | BH.DS ---
Discharge Summary Demographics Date of Admission:: 02/01/24 Discharge Date: 02/12/24 Presenting Problems at Admission:: Patient is a 58-year-old female with a history of depression, anxiety and panic attacks who was referred by her outpatient counselor for worsening symptoms of depression and anxiety and inability to function at home or at work. The patient has had worsening symptoms of depression and anxiety since about 7 weeks ago after a severe panic attack. She has not worked part-time for the past 2 weeks due to her mental health symptoms. She was staying in bed all day long for the last 7 weeks. She endorses sadness, hopelessness, worthlessness, crying spells, anhedonia, biological disruption of appetite and has lost 10 pounds in 2 months. Discharge Diagnoses:: 1. Major depressive disorder, recurrent, severe without psychosis F33.2 2. Generalized anxiety disorder Reason for Discharge:: Pt has shown significant treatment progress since starting PHP and no longer meets criteria for this level of service. Pt is dropping down to Intensive Outpatient Program. Treatment Progress During Treatment & Response: Progress noted with client starting to get out of her house, not laying in bed throughout the day, able to cook a meal everyday, getting back to grocery shopping, better managing her depression, and slight decrease in her anxious thoughts. Issues Still to be Addressed:: Client could benefit from continued work on challenging distorted/negative thoughts, challenging distorted/anxious thoughts, and getting back to socializing. Discharge Recommendations/Instructions:: Pt is to discharge from [facility] today and will start IOP on 02/15/24. Discharge Handout
== END 2024-02-12 13:51 | disposition home or self-care (01) ==
LOC: BHPHP 06:34
PROVIDERS: PCP Family Medicine; Referring Provider Psychiatry & Neurology Psychiatry; Visit Provider Psychiatry & Neurology Psychiatry
DX: F33.2 Major depressive disorder, recurrent severe without psychotic features (principal); F41.1 Generalized anxiety disorder; G89.29 Other chronic pain; M25.559 Pain in unspecified hip; Z79.899 Other long term (current) drug therapy
CPT/HCPCS: H0035; 90832; 90834; G0410

== ENCOUNTER 2024-02-15 08:00 | Outpatient (RCR) | payer BC, SELFPAY ==
--- NOTE | 2024-02-15 10:10 | BH.SGPN.GN ---
Behaviors/Verbalizations/Mental Status: [] Eye contact is good. Motor activity is appropriate. Appearance is casual. Speech is Appropriate. Mood is dysthymic. Affect is congruent. Thoughts are linear and logical. No evidence of psychosis. Client Response/Progress/Benefit: [] Client receptive to session AEB listening attentively to others and taking notes. Limited input however was attentive throughout psychoeducation on the cognitive triangle and maintenance cycles.Attentive during group discussion reviewing the impact of daily activities and behaviors in either reinforcing unhealthy maintenance cycles and depression or assisting in reducing symptoms (?down? vs ?up? activities). Client was attentive as peers identify ?down? activities they engage in such as: excessive sleep, isolation, not eating, and using substance to cope. Attentive during discussion on Common ?Up? activities clients identified which included: music, comfort shows, board games, talking with friends, taking medications, and completing tasks. Appeared to benefit from increased awareness of current behaviors and impact these have on mental health. Will continue in IOP to stabilize mood, prevent decompensations, and improve functioning. Narrative Note: []
--- NOTE | 2024-02-15 11:10 | BH.SGPN.GN ---
Behaviors/Verbalizations/Mental Status: []Eye contact is good. Motor activity is appropriate. Appearance is neat. Speech is Appropriate. Mood is euthymic. Affect is congruent. Thoughts are linear and logical. No evidence of psychosis. Client Response/Progress/Benefit: [] Pt responded well to session, attentive and engaged in group discussions and activity. Group discussed values and the benefits that knowing one's values can have on one's mental health. Pt explored own values and identified personal top values. Pt stated a personally important value is mental and emotional health. Pt set a goal to improve engagement in this value. Goal identified as challenging her negative thinking and reminding herself that thoughts are just thoughts not facts. Pt appeared to benefit from exploring values and creating a weekly goal. Pt also reported benefitting from the activity and the group encouragement today. Will continue in IOP to continue use of healthy coping skills, challenge distortions, and prevent decompensation.
--- NOTE | 2024-02-15 13:20 | BH.MDN ---
Multi-Disciplinary Note Note 30-min Individual: Time Started:: 09:00 Date: 02/15/24 Purpose of session/treatment goals addressed:: Purpose of session was to discuss goals for IOP level of care. Eye Contact:: Good Motor Activity:: Appropriate Appearance:: Neat Speech:: Appropriate Mood:: Euthymic and Anxious Affect:: Congruent Thoughts:: Linear, Logical and No evidence of hallucinations/delusions noted Staff Interventions:: CBT techniques, mindfulness skills, rapport building, strengths perspective, treatment planning and goal setting Client Response:: Client reported over the weekend she went to a social gathering and was able to stay the whole time. Client stated she did feel somewhat anxious before going to the social gathering but overall while she was there was able to enjoy herself. Client stated she also was able to go to [employer] with her and didn't find herself to be extremely anxious while she was out of the house. Client reported they did go to their [place] and she was able to relax and do some crafting. Client stated her worrying has decreased over the weekend and feels like she's doing better. Client stated since dropping down to IOP from PHP today she wants to continue working on learning skills about how to reduce her worry anxiety. Client stated it would be helpful to learn about the sort of thoughts and how to replace them. Client stated she wants to continue to work on decreasing how much her anxiety keeps her from doing. Client stated anxiety does hold her back from social gatherings, going to big stores on her own, being able to plan meals for the entire week, and keeping her from going to the gym. Client set goal to schedule something with a friend to hang out with for next week. Risks/Concerns:: Denies active suicidal ideation, plan, or intention to date. Future oriented. Progress Toward Goals/Plan:: Progress noted with client reporting being able to be social and get out of her house this weekend. Client was able to join her at their RV park over the weekend, which was something client thought she could never get back to doing. Client dropping down to IOP this week after doing 10 days of PHP. Client to continue IOP to decrease anxious symptoms, continue building healthy coping skills, and prevent decompensation. Time Stopped:: 09:30
--- NOTE | 2024-02-15 13:58 | BH.MTP ---
Master Treatment Plan Patient Information Program Physician:: Dr. Jarquin Primary Therapist:: Samia Mejia, [facility] Psychiatric Diagnoses Psychiatric Diagnoses:: 1. Major depressive disorder, recurrent, severe without psychosis F33.2 2. Generalized anxiety disorder Diagnosis Code(s):: F33.2 Estimated LOS Estimated LOS (in weeks):: 6 Problem/Goal #1 Problem/Goal #1 Stated Goal:: Client will reduce depression, feelings of hopelessness, and anhedonia. Functional Impact: Pt completed PHP from 02/01/24 to 02/12/24. Prior to starting PHP pt was struggling with completing activities of daily living, often staying in bed most of the day. Through her work in [employer] [employer] pt is reporting improved ability to complete ADL's, has been able to go to a grocery store, starting to reach out to friends again, and decrease in crying. Pt continues to report not feeling like herself. Pt reports daily anxiety that consumes significant amount of time about her youngest son. Pt reports still not feeling excited about doing things, but recognizes the more she uses opposite action the better she feels. Objectives Objective #1: Stated Objective: Client will identify and replace 2-3 negative thinking patterns that reinforce feelings of hopelessness and depression. Interventions: Through groups and individual therapy, pt will be provided with education on cognitive distortions, mistaken beliefs, and identifying and combating negative self-talk. Therapist will help pt explore connection between thoughts, feelings, and actions. Discharge Criteria: Pt will be able to identify 2-3 negative thinking patterns and be able to effectively stop, challenge, or cope with those negative thoughts. Objective #2: Stated Objective: Client will consistently utilize 2-3 healthy coping strategies to manage depressive symptoms. Interventions: Therapist will utilize CBT techniques to assist client with understanding the connection between thoughts, feelings and behaviors. Education will be provided on behavioral activation. Therapist will assist client in learning internal coping strategies to manage depressive symptoms, along with helping client identify triggers. Discharge Criteria: Client will have achieved this goal reports consistent use of at least 2 healthy coping strategies that successfully manage depressive symptoms. Problem/Goal #2 Problem/Goal #2 Stated Goal:: Client will reduce overall frequency, intensity, and duration of the anxiety so that daily functioning is not impaired.? Functional Impact: Pt completed PHP from 02/01/24 to 02/12/24. Prior to starting PHP pt was struggling with completing activities of daily living, often staying in bed most of the day. Through her work in [facility] pt is reporting improved ability to complete ADL's, has been able to go to a grocery store, starting to reach out to friends again, and decrease in crying. Pt continues to report not feeling like herself. Pt reports daily anxiety that consumes significant amount of time about her youngest son. Pt reports still not feeling excited about doing things, but recognizes the more she uses opposite action the better she feels. Objectives Objective #1: Stated Objective: Client will learn and implement 2-3 calming/relaxation skills to reduce overall anxiety and manage anxiety symptoms. Interventions: Therapist and group sessions will help client identify physiological warning signs of anxiety, increase awareness of thoughts that increase anxiety, and identify behaviors that reinforce anxious symptoms. Group and individual counseling will teach client calming skills to help manage anxious symptoms. Discharge Criteria: Client will have achieved this goal when can verbalize at least 2 calming skills and reports skills successfully help reduce anxious symptoms. Objective #2: Stated Objective: Client will identify 2-3 anxiety triggers and 2 coping skills to use when feeling anxious. Interventions: Therapist will assist client in exploring what triggers anxiety and teach client coping strategies to effectively manage anxiety symptoms. Discharge Criteria: Client will have met this goal when can identify at least 2 triggers to anxiety and verbalize two healthy ways to cope with feelings of anxiety.
--- NOTE | 2024-02-17 09:05 | BH.SGPN.GN ---
Behaviors/Verbalizations/Mental Status: [] Eye contact is good. Motor activity is appropriate. Appearance is casual. Speech is Appropriate. Mood is euthymic. Affect is full. Thoughts are linear and logical. No evidence of psychosis. Reviewed daily check in sheet and no reports of suicidal ideations or intent. Client Response/Progress/Benefit: [] Pt participated at times during the group discussion. Attentive. Daily symptom tracked notes 10/16 for anxiety. Emotion for today is peaceful. Able to identify mental health wins and healthy habits. She had a goal to enter and shop at a big store which she accomplished yesterday. Discussed how she has avoided certain social situations due to fear of anxiety and panic attacks. She developed anxiety management strategies and was proud of herself for addressing this social obstacle. She has also worked her PT jobs 2 days in a row as she is returning to baseline functioning. Reports fear and anxiety related medication changes. Concerned she might have a reaction or side effect which will hamper her progress. Benefited from group support, encouragement, and feedback. Will continue in IOP to prevent decompensation, stabilize anxiety, and improve functioning. Narrative Note: []
--- NOTE | 2024-02-17 10:10 | BH.SGPN.GN ---
Behaviors/Verbalizations/Mental Status: []Pt alert and oriented, neatly dressed and groomed. Eye contact good. Motor activity appropriate. Speech within normal limits. Affect congruent, mood euthymic. Thoughts linear, logical, no signs of hallucinations or delusions. Client Response/Progress/Benefit: []Pt active participant AEB pt providing input throughout group discussion. Showed engagement during small group discussions and worked with group on identifying how each defense mechanism can impact mental health and gave examples. Pt was engaged during small group discussion and expressed connecting with several of the defense mechanisms reviewed. Pt reported connecting with sublimation, anticipation, projection, and suppression. ?Seemed to benefit from gaining awareness about the different defense mechanisms. Pt to continue IOP tx to promote gains, monitor medication changes, and further improve daily functioning. ? Narrative Note: []
--- NOTE | 2024-02-17 11:10 | BH.SGPN.GN ---
Behaviors/Verbalizations/Mental Status: []Pt alert and oriented, neatly dressed and groomed. Eye contact good. Motor activity appropriate. Speech within normal limits. Affect congruent, mood euthymic. Thoughts linear, logical, no signs of hallucinations or delusions. Client Response/Progress/Benefit: [] Pt responded well to session, participating in activity and small group discussion. Group reviewed the rest of the defense mechanisms and discussed how these are adaptive, maladaptive, or somewhere in the hernández. Pt participated in the experiential activity which encouraged pts to draw a castle that portrayed their different defense mechanisms. Pt's defense mechanisms included sublimation, anticipation, suppression, and projection. Pt stated she is using projection much less. Pt stated today she learned that ?anticipation doesn?t have to be negative what ifs.? Pt listened to creative services specialist teach different skills to help pt?s cope with or change their defense mechanisms. Pt appeared to benefit from gaining insight to the different defense mechanisms and learning coping skills. Pt will continue IOP tx to promote mood stability, increase distress tolerance skills, and improve self-confidence. ?? Narrative Note: []
--- NOTE | 2024-02-17 11:43 | PCM.BH.PN ---
Progress Note Progress Note: History of Present Illness/Interim History: The patient is a 58-year-old female with a history of depression, anxiety and panic attacks who is seen in follow-up at the [facility] health [facility]. I last saw the patient 1 week ago and at that time her Paxil was increased to 20 mg and we continue to wean the Cymbalta which will be discontinued today. The patient has made progress and is engaged in consistent in her attendance in the program and decision has been made to step her down from [facility] to [facility]. Patient states that she has some fatigue present but also overall feels that she has more energy and is able to use some of the skills she has learned in the [facility] to help manage her mental health issues. Overall she is feeling much better. She has no sobbing. She is able to function much, much better in her daily life. She still continues to worry about her youngest son doing okay with some intrusive thoughts. She denies any hopelessness now. She denies passive thoughts of , plan for suicide, suicidal ideation, homicidal ideation, hallucinations or delusions. She still has a mild tremor which started on the Cymbalta and she has still constipation which started on Cymbalta. Current Psychiatric Medications: [] Paxil dose increased 1 week ago); Klonopin 1 mg p.o. nightly only; Cymbalta 30 mg p.o. daily (decreased 2 weeks ago); trazodone 100 mg p.o. nightly; Seroquel 12.5 mg p.o. twice daily (x 4 weeks now). Mental Status Examination: [] The patient is a 58-year-old female who appears normal for stated age and is casually dressed and groomed with good hygiene. She has no psychomotor agitation or retardation and is ambulatory with a normal gait. Eye contact is good and speech is normal rate and rhythm and fluent with no pressure. Mood is depressed. Affect is full and normal. Thought process is goal-directed and organized. Thought content: The patient is hopeful for the future. There is no evidence of passive thoughts of , suicidal ideation, plan for suicide, homicidal ideation, hallucinations, delusions or symptoms of sanket. Reality testing is intact. Judgment is intact. Insight is fair and improving. Diagnoses: [] 1. Major depressive disorder, recurrent, severe without psychosis (improving) 2. Generalized anxiety disorder 3. Chronic hip pain Plan: [] The patient will stepdown from PHP to IOP as her symptoms have lessened somewhat. She felt safe during the interview and if it anytime she does not feel safe she agrees to let us know or go to the emergency room. No medication changes were made today as they were changed 1 week ago. She will continue to follow-up with her outpatient providers and I will see the patient in follow-up in several weeks. She will discontinue the Cymbalta today after weaning.
--- NOTE | 2024-02-17 11:49 | BH.DR.ITP ---
Initial Treatment Plan Patient Information Visit Information: ADMISSION DATE: EXPECTED LOS: 4-6 weeks Problems/Symptoms Problem #1:: Depression Symptom:: Sadness, hopelessness, lack of motivation, low energy, decreased concentration, fatigue Problem #2:: Anxiety Symptom:: Worry, rumination, intrusive thoughts
--- NOTE | 2024-02-19 09:00 | BH.SGPN.GN ---
Behaviors/Verbalizations/Mental Status: []Eye contact good. Motor activity appropriate. Speech within normal limits. Affect congruent, mood euthymic. Thoughts linear, logical, no signs of hallucinations or delusions. Reviewed client?s symptom tracker, SI within baseline, denies plan, or intent. Client Response/Progress/Benefit: [] Client receptive of session, attentive and willing to process with group. Client stated mental health positive as being able to plan out four days of meals and going to the grocery store to get everything that she needed. Client reported additional mental health win as going to lunch with her best friend, which was one of her goals from individual therapy. Client reported her friend noticed a positive change in how client was acting during their time together. Client stated her stressor is taking a longer break between IOP days. Client seemed to benefit from support from peers. Recommended continued IOP tx to promote use of healthy coping skills, challenge negative/distorted thoughts, and prevent decompensation.
--- NOTE | 2024-02-19 10:10 | BH.SGPN.GN ---
Behaviors/Verbalizations/Mental Status: [] Eye contact is good. Motor activity is appropriate. Appearance is casual. Speech is Appropriate. Mood is anxious. Affect is congruent. Thoughts are linear and logical. No evidence of psychosis Client Response/Progress/Benefit: [] Client was an active participant in group discussion and experiential activity. Attentive during psychoeducation on resilience. Participated during interactive discussion with peers on the definition of resilience. Group worked together to identify what can impact one's ability to be resilient which included; relationships. past experiences, trauma, support system, lack of resources,and current mental/physical health state. Group also worked together to identify the benefits of being resilient which included; increased self-worth, increased ability to cope, personal growth, can inspire others, and increased confidence. Able to relate experiential activity of group juggle to topics of resilience. Worked well with peers in small group in which they identified factors that contribute to resilience. Benefited from increased awareness of resilience and the factors that contribute to building resilience. Will continue in IOP to prevent decompensation, increase healthy coping, and improve functioning. Narrative Note: []
--- NOTE | 2024-02-19 11:10 | BH.SGPN.GN ---
Behaviors/Verbalizations/Mental Status: []Pt alert and oriented, casually dressed and groomed. Eye contact good. Motor activity appropriate. Speech within normal limits. Affect congruent, mood content. Thoughts linear, logical, no signs of hallucinations or delusions. Client Response/Progress/Benefit: []Pt responded well to session AEB completing the resilience worksheet provided. Pt participated in the discussion and worked cooperatively with group to identify strategies to enhance each of the components discussed. Pt reports belief they already use resilience trait of??self-awareness? and ?accept that change is a part of living?. Pt stated they would like to continue to develop resilience trait of ?Take care of yourself? as pt feels she would benefit from incorporating regular movement/exercise. Pt seemed to benefit from discussing strategies for improving personal resilience and identifying resilience traits pt already possesses. Will continue IOP tx to prevent decompensation, improve daily functioning, and increase behavior activation skills.? Narrative Note: []
--- NOTE | 2024-02-23 09:05 | BH.SGPN.GN ---
Behaviors/Verbalizations/Mental Status: [] Eye contact is good. Motor activity is appropriate. Appearance is casual. Speech is Appropriate. Mood is euthymic. Affect is full. Thoughts are linear and logical. No evidence of psychosis. Reviewed daily check in sheet and no reports of suicidal ideations or intent. Client Response/Progress/Benefit: [] Pt was an active participant in group discussion. Attentive. Daily symptom tracker notes 10/16 for depression. Emotion for today is hopeful. My brain is slowing down which is good. I'm thinking more clearly and doing much better. Mental health win was that she went 3 days without coming here. Utilizing skills independently and re-engaging in previous behaviors prior to mental health decompensation. Progress noted. Benefited from group support, encouragement, and feedback. Will continue in IOP to prevent decompensation, increase healthy coping, and to improve functioning. Narrative Note: []
--- NOTE | 2024-02-23 11:15 | BH.SGPN.GN ---
Behaviors/Verbalizations/Mental Status: []Pt alert and oriented, neatly dressed and groomed. Eye contact good. Motor activity appropriate. Speech within normal limits. Affect congruent, mood euthymic. Thoughts linear, logical, no signs of hallucinations or delusions. Client Response/Progress/Benefit: [] Pt was an active participant in group discussions and experiential activity. Attentive during psychoeducation on the 4 A's (Avoid, adapt, alter, accept) of coping with stress. Shared that they would benefit most from adapting her response to her son?s stressors. Pt stated, ?I can?t control his situation.? Was able to identify the connection between the experiential activity and utilization of stress management skills. Benefited from increased awareness of stress management strategies. Pt will continue IOP tx to promote mood stability, further improve daily functioning, and improve self-confidence. Narrative Note: []
--- NOTE | 2024-02-24 10:10 | BH.SGPN.GN ---
Behaviors/Verbalizations/Mental Status: [] Eye contact is good. Motor activity is appropriate. Appearance is casual. Speech is Appropriate. Mood is dysthymic. Affect is congruent. Thoughts are linear and logical. No evidence of psychosis. Client Response/Progress/Benefit: [] Pt receptive to session AEB contributing to small group discussion, as well as listening attentively to others, and taking notes. Worked with group to brainstorm the positive and negative aspects of stress on physical and mental health as well as the impact of distress on performance, relationships, and mental health. Pt shared her top stressors to be: Worries about her youngest son, managing medication changes, and unsure what she wants to do about her job. Shared when feeling overwhelmed with stress she tends to lash out, isolate, step back from progress, and avoid.. Benefited from increased awareness of positive and negative stress as well as how stress impact individuals. Will continue in IOP to promote utilization of healthy coping skills, continue to challenge negative thoughts, and prevent decompensation.
--- NOTE | 2024-02-25 09:00 | BH.SGPN.GN ---
Behaviors/Verbalizations/Mental Status: [] Pt eye contact good, casually dressed, motor activity appropriate, speech normal rate and tone, mood euthymic, congruent affect, thoughts linear and intact, no evidence of delusions or hallucinations. Per daily symptom tracker pt denies active SI and intention. Client Response/Progress/Benefit: [] Client responded well to session AEB listening to others and sharing thoughts/feelings. Client reports on her symptom tracker 0/5 for depression and a 2/5 for anxiety. Client stated this morning she is feeling hopeful because since weaning off her Cymbalta fully over the last week she has not had any negative side effects from the Paxil. Client stated she is also feeling anxious because she is worried once she starts to wean off of some of the other medications she is going to go back to how she was. Client stated mental positive as being able to go to the grocery store and get her full list of groceries for the week which is something she has not done in several months. Client reported additional mental twins as cooking, spending time with her , laughing more, and being able to joke around. Appeared to benefit from support from peers. Will continue IOP tx to promote utilization of healthy coping skills, challenge negative thought patterns and distortions, and prevent decompensation.
--- NOTE | 2024-02-25 10:10 | BH.SGPN.GN ---
Behaviors/Verbalizations/Mental Status: [] Eye contact is good. Motor activity is appropriate. Appearance is casual. Speech is Appropriate. Mood is content. Affect is congruent. Thoughts are linear and logical. No evidence of psychosis. Client Response/Progress/Benefit: []Pt engaged participant AEB listening to others, engaging in activity, and providing feedback at times. Attentive during psychoeducation and provided insight into obstacles that impede mental wellness. Pt shared with group current mental health reality and desired mental health reality. Stated she would like to get to a place where she feels more present and able to navigate her thoughts and not let them feed the depression loop when hit with an unexpected stressor or setback. Identified barriers to desired reality include: not giving herself credit, avoidance, negative self-talk, and isolation. Benefited from taking look at current mental health state and obstacles for progress. Pt to continue IOP tx to improve mood stability, reduce thought distortions, and prevent decompensation. Narrative Note: []
--- NOTE | 2024-02-25 11:59 | BH.MDN_ITS ---
Multi-Disciplinary Note Note 30-min Individual: Time Started:: 11:30 Date: 02/25/24 Purpose of session/treatment goals addressed:: Purpose of session was to address goals 1 and 2 from MTP. Eye Contact:: Good Motor Activity:: Appropriate Appearance:: Casual Speech:: Appropriate Mood:: Anxious Affect:: Congruent Thoughts:: Linear, Logical and No evidence of hallucinations/delusions noted Staff Interventions:: thought challenging, CBT techniques, mindfulness skills, strengths perspective, goal setting and taught coping skills Client Response:: Client stated she's feeling more proud of herself the last few days and finding it easier to give yourself credit for the progress that she is making. Client stated she had a really good conversation with her younger son in which she talked to him about the reason she worries about him and thought he responded really well to the conversation. Client said after talking to her son about how she feels it seemed to really help decrease her anxiety. Client stated she's continuing to have mild anxiety especially about her son but finds it to be more manageable. Client stated she does note progress with starting to get back into things that she used to enjoy doing and decreasing how much her anxiety keeps her from doing things. Client stated she's continuing to not socialize like she used to. Client stated she used to go to breakfast with her best friends every other week but hasn't done that in a long time. Client stated she does have plans to go out to eat this weekend with some of their camp friends and she is feeling anxious but yet excited. Client stated she followed through with goal from last session of scheduling a lunch date with one of her best friends. Client reported she did have mild anxiety prior to the lunch and during but was able to manage it. Client responded well to discussion and education about decrease in seeking reassurance by contacting her son every time she's worried. Brennen says she does think it's helpful if she gives him more space instead of constantly contacting him due to her anxious thoughts. Therapist encouraged client to give herself a time frame of how much she's allowed to talk or worry about her son with her because she recognizes s he ?wastes a lot of time talking about the same things? in regards to her son. Risks/Concerns:: Denies suicidal ideation, plan, or intention to date. future oriented. Progress Toward Goals/Plan:: Progress noted with client following through with goal of connecting with one of her best friends for lunch. Client has been isolating and pushing off socializing due to anxiety and depression. Client stated she was able to enjoy herself when being out with her friend. Client has also scheduled a group dinner when she goes to her [place] park this weekend. Client continues to report her anxious thoughts about her youngest son can consume a lot of her day. Client is encouraged to use her breathing/grounding tools more consistently. Also encouraged to decrease how often she reaches out to son for reassurance. Client is to continue IOP to decrease anxiety, increase consistent use of healthy coping, and prevent decompensation. Time Stopped:: 12:00
--- NOTE | 2024-02-26 09:00 | BH.SGPN.GN ---
Behaviors/Verbalizations/Mental Status: [] Pt alert and oriented, neatly dressed and groomed. Eye contact good. Motor activity appropriate. Speech within normal limits. Affect congruent, mood euthymic. Thoughts linear, logical, no signs of hallucinations or delusions. Reviewed pt?s symptom tracker, no risk for suicidal ideation, plan, or intent 02/26/24 Client Response/Progress/Benefit: []Pt responded well to session, attentive and engaged. Pt reports on the daily symptom tracker that her mood and functioning is better this week. Pt's mood today is calm this morning despite having some negative thought patterns last night. Pt shared she had the thought what if my meds stop working and pt shared she has not thought this for a while. Group members gave pt feedback and ways to combat this. Pt's wins today include being more consistently myself and getting back to my old routine. Pt has been cooking, meal prepping, and going to work consistently which pt was unable to do weeks ago. Pt appeared to benefit from reflecting on progress. Pt will continue IOP tx to promote gains, increase confidence, and improve self-compassion. Narrative Note: []
--- NOTE | 2024-02-26 10:10 | BH.SGPN.GN ---
Behaviors/Verbalizations/Mental Status: [] Eye contact is good. Motor activity is appropriate. Appearance is casual. Speech is Appropriate. Mood is euthymic. Affect is full. Thoughts are linear and logical. No evidence of psychosis Client Response/Progress/Benefit: [] Client was an active participant during interactive group discussions. Attentive during psychoeducation on the six types of boundaries (physical, emotional, intellectual, sexual, time, and material) AEB note-taking and input in group discussions. Along with peers contributed to interactive discussion on defining what a boundary is in mental health. Client along with peers identified challenges to setting boundaries which included; fear of conflict, being uncomfortable, believing they are being rude or mean, etc. Client along with peers identified the benefits to setting boundaries such as healthier relationships, stronger sense of self, and improved confidence. Client benefited from increased awareness and insight on the importance/benefit to setting health boundaries. Will continue in IOP to prevent decompensation, increase healthy coping skills, and improve functioning. Narrative Note: []
--- NOTE | 2024-02-26 11:10 | BH.SGPN.GN ---
Behaviors/Verbalizations/Mental Status: [] Eye contact is good. Motor activity is appropriate. Appearance is casual. Speech is Appropriate. Mood is euthymic. Affect is congruent. Thoughts are linear and logical. No evidence of psychosis. Client Response/Progress/Benefit: [] Client responded well to session AEB listening attentively to peers, providing some input, as well as taking notes throughout. Client contributed throughout psychoeducation on different boundary setting styles. Participated in group discussion brainstorming various strategies for improving healthy boundary settings, as a group identified starting with easy/small boundaries, opening up to one trusted person and not overly apologizing as strategies to try. Seemed to benefit from increased awareness of how different boundary styles can impact mental health. Will continue IOP tx to promote use of healthy coping skills, challenge negative/distorted thoughts, and prevent decompensation.
--- NOTE | 2024-02-29 09:01 | BH.SGPN.GN ---
Behaviors/Verbalizations/Mental Status: [] Pt eye contact good, casually dressed, motor activity appropriate, speech normal rate and tone, mood euthymic, congruent affect, thoughts linear and intact, no evidence of delusions or hallucinations. Per daily symptom tracker pt denies active SI and intention. Client Response/Progress/Benefit: [] Client appeared to listen attentively to others and sharing openly with group. Per daily sympton tracker client reports 2/5 for anxiety and 0/5 for depression. Client reported mental health positive as [place]. Stated she was able to go out to eat for the first time in two months with her and another couple. Client reported she was able to enjoy herself. Stated additional mental health positive as spending time with her grandkids yesterday. Client stated continued stressor is worrying that decreasing her nighttime medications will make her feel how she did a few weeks ago. Appeared to benefit from support from peers. Will continue IOP tx to promote healthy coping skills, continue working on anxiety management skills, and prevent decompensation,.
--- NOTE | 2024-02-29 10:10 | BH.SGPN.GN ---
Behaviors/Verbalizations/Mental Status: [] Eye contact is good. Motor activity is appropriate. Appearance is casual. Speech is Appropriate. Mood is euthymic. Affect is full. Thoughts are linear and logical. No evidence of psychosis. Client Response/Progress/Benefit: [] Pt participated at times. Attentive. Participated in and was engaged during experiential activity. Able to relate experiential activity to group topic of FOF. Engaged during interactive discussion on what failure means to the group in which peers identified and defined failure and Fear of Failure. Group was able to identify impact of fear of failure on mental health identifying that it can cause procrastination, avoidance, self-sabotage behaviors, etc. Attentive during interactive discussion on the impact that FOF can have on mental wellness, depression, anxiety, career, relationships, and growth. Benefited from increased awareness of how the role that FOF plays in mental health and decision-making. Will continue in IOP prevent decompensation, increase healthy coping, and to stabilize mood. Narrative Note: []
--- NOTE | 2024-02-29 11:08 | BH.SGPN.GN ---
Behaviors/Verbalizations/Mental Status: []Pt alert and oriented, neatly dressed and groomed. Eye contact good. Motor activity appropriate. Speech within normal limits. Affect congruent, mood euthymic. Thoughts linear, logical, no signs of hallucinations or delusions. Client Response/Progress/Benefit: []Pt responded well to session, engaged in the experiential activity and attentive throughout group processing. Pt reported fear of failure has kept pt from thinking positive after a medication change. Pt completed fear of failure worksheet and was able to identify thoughts and behaviors that reinforce personal fear of failure including intrusive thoughts, what ifs, and negative self-talk. Pt participated in group discussion regarding strategies to overcome fear of failure. Identified wanting to work on using self-talk to remind herself ?to not be afraid to make mistakes.? Appeared to benefit from increased knowledge of strategies to combat fear of failure and gaining self-awareness. Pt will continue IOP tx to promote mood stability, increase self-confidence, and improve self-care. ? Narrative Note: []
--- NOTE | 2024-03-01 09:05 | BH.SGPN.GN ---
Behaviors/Verbalizations/Mental Status: [] Pt alert and oriented, neatly dressed and groomed. Eye contact good. Motor activity appropriate. Speech within normal limits. Affect congruent, mood euthymic. Thoughts linear, logical, no signs of hallucinations or delusions. Reviewed pt?s symptom tracker, no risk for suicidal ideation, plan, or intent 03/01/24 Client Response/Progress/Benefit: []Pt responded well to session, attentive and engaged. Pt reports feeling calm this morning despite having a stressor this morning and running behind. Pt shared in the past she would have turned around and gone home. However, today, pt used calming skills, acceptance, and allowed herself to listen to music and enjoy her drive. Pt's stressor/win today is that she recently applied for a job and she got an interview. Pt reports that she needs a job with more brain stimulation and is hoping she gets this job. Pt appeared to benefit from connecting with peers and getting feedback. Pt will continue IOP tx to promote mood stability, combat negative self-talk, and reinforce healthy coping skills. Narrative Note: []
--- NOTE | 2024-03-01 10:05 | BH.SGPN.GN ---
Behaviors/Verbalizations/Mental Status: [] Client alert and oriented, casually dressed and groomed. Eye contact good. Motor activity appropriate. Speech within normal limits. Affect congruent, mood euthymic. Thoughts linear, logical, no signs of hallucinations or delusions. Client Response/Progress/Benefit: [] Client was an active participant, AEB taking notes and providing input in group discussions and activities. Attentive during psychoeducation. Client engaged during interactive discussion in which the group defined self-care and discussed its benefits. Group discussed barriers to engaging in self-care. Group members together came up with guilt, anxiety, and feeling weak as barriers to engage in self care. Client participated in small groups where they worked to identify common self-care ?myths?. Benefited from increased awareness of self-care, its benefits, and the consequences of not utilizing self-care strategies. Will continue IOP tx to prevent decompensation, promote healthy coping skill application, and continue to increase functioning. Narrative Note: []
--- NOTE | 2024-03-01 11:05 | BH.SGPN.GN ---
Behaviors/Verbalizations/Mental Status: [] Client alert and oriented, casually dressed and groomed. Eye contact good. Motor activity appropriate. Speech within normal limits. Affect congruent, mood euthymic. Thoughts linear, logical, no signs of hallucinations or delusions. Client Response/Progress/Benefit: [] Client engaged participant AEB completing self-assessment of current self care and providing input throughout discussion. Client completed worksheet identifying current self-care practices and what self-care activities client wants to start using. Client selected spiritual self-care to begin practicing more consistently. Client plans to do this by finding a new congregation to attend. Appeared to benefit from completing the self-care evaluation and gaining insights into current self-care practices, as well as identifying areas in which client would like to improve upon. Client will continue IOP tx to increase positive thought patterns and increase emotional regulation skills. Narrative Note: []
--- NOTE | 2024-03-09 09:05 | BH.SGPN.GN ---
Behaviors/Verbalizations/Mental Status: [] Eye contact is good. Motor activity is appropriate. Appearance is casual. Speech is Appropriate. Mood is anxious. Affect is congruent. Thoughts are linear and logical. No evidence of psychosis. Reviewed daily check in sheet and no reports of suicidal ideations or intent. Client Response/Progress/Benefit: [] Pt participated at times during the group discussion. Attentive. Daily symptom tracker notes 3/5 for anxiety and 2/5 for irritability. Pt states I'm very anxious. Reports increased anxiety in the past week with no known trigger. Its' really bad in the morning which leads to struggles getting up in the AM. I'm trying to use skills. She is worried that her medications are not working. Concern that she is going to regress and her mental health is going to get bad. Group provided support, encouragement, and feedback which was beneficial. Will continue in IOP to prevent decompensation, stabilize mood, and improve functioning. Narrative Note: []
--- NOTE | 2024-03-09 10:10 | BH.SGPN.GN ---
Behaviors/Verbalizations/Mental Status: []Client alert and oriented, casually dressed and groomed. Eye contact good. Motor activity appropriate. Speech within normal limits. Affect congruent, mood euthymic. Thoughts linear, logical, no signs of hallucinations or delusions. Client Response/Progress/Benefit: []Pt engaged in session AEB listening attentively to others and providing input throughout. Pt engaged in activity, able to connect how it can be uncomfortable and difficult to accept when things are out of one?s own control. Pt worked with group to identify what things in life can be hard to accept. Group identified things hard to accept as: change, loss of relationship, mental health diagnosis, other?s behaviors, and finances. Pt identified struggling to accept that she can't be in control of her son's future and decisions. Seemed to benefit from increased awareness of importance of acceptance. Pt to continue IOP tx to continue building healthy coping skills, challenge negative/distorted thoughts, and prevent decompensation.
--- NOTE | 2024-03-09 11:10 | BH.SGPN.GN ---
Behaviors/Verbalizations/Mental Status: []Pt alert and oriented, neatly dressed and groomed. Eye contact good. Motor activity appropriate. Speech within normal limits. Affect congruent, mood anxious. Thoughts linear, logical, no signs of hallucinations or delusions. Client Response/Progress/Benefit: [] Pt responded well to session AEB taking notes and contributing to discussion throughout. Pt engaged as group continued discussion on acceptance and the mental health benefits of practicing acceptance. Pt and peers identified what makes acceptance challenging and pt completed a self-reflection exercise on what is hard to accept in pt's life. Pt identified what is hard to accept in life and how it makes things harder when resists acceptance. Pt reports it is hard to accept that ?I passed anxiety to my kids.? Group identified strategies to increase acceptance and pt wants to work on ?adjusting my goals and standards for my current self, not who I used to be.? Pt appeared to benefit from gaining insight and learning strategies to increase acceptance. Pt will continue IOP tx to promote gains, combat distortions, and improve daily functioning. ? Narrative Note: []
--- NOTE | 2024-03-09 11:26 | PCM.BH.PN_ITS ---
Progress Note Progress Note: History of Present Illness/Interim History: The patient is a 58-year-old female with a history of depression, anxiety who is seen in follow-up at the [facility]. I last saw the patient 3 weeks ago and at that time she finished weaning her Cymbalta and it was discontinued 3 weeks ago. Patient says she was feeling better and according to the staff the patient has been consistent in her attendance and engaged in the program and has been making progress. Patient states that she feels her anxiety returned about 1 week ago and she now experiences more severe anxiety in the morning and this has caused her to think more negatively laced lately. She continues to worry about getting worse. She denies any panic attacks. Mood was getting close to baseline but now is a little more anxious. She denies hopelessness, passive thoughts of , plan for suicide, suicidal ideation, homicidal ideation, hallucinations or delusions. Current Psychiatric Medications: [] Paxil 20 mg p.o. daily (dose increased 1 month ago); Cymbalta weaned and discontinued 3 weeks ago.; Trazodone 50 to 100 mg at bedtime which she takes only as needed; Seroquel 12.5 mg p.o. twice daily (x 7 weeks now). Mental Status Examination: [] The patient is a 58-year-old female who appears normal for stated age and is casually dressed and groomed with good hygiene. She is ambulatory with a normal gait and has no psychomotor agitation or retardation. Speech is normal rate and rhythm and fluent with no pressure and eye contact is good. Mood is anxious and somewhat depressed over that. Affect is full and normal. Thought processes goal-directed and organized. Thought content: The patient is worried that she will get bad again. There is no evidence of passive thoughts of , suicidal ideation, plan for suicide, homicidal ideation, hallucinations or delusions. Reality testing is intact. Judgment is intact. Insight is fair and improving. Diagnoses: [] 1. Major depressive disorder, recurrent, moderate 2. Generalized anxiety disorder 3. Chronic hip pain Plan: [] The patient will continue the IOP as the structure, support, education and group therapy have benefited her. She felt safe during the interview and if it anytime she does not feel safe she agrees to let us know or go to the emergency room. She agrees to increase her Paxil to 30 mg p.o. daily and prescription is sent in for this. She will continue to follow-up with his with her outpatient providers and I will see the patient in follow-up while she is in the IOP.
--- NOTE | 2024-03-10 09:01 | BH.SGPN.GN ---
Behaviors/Verbalizations/Mental Status: [] Eye contact is good. Motor activity is appropriate. Appearance is casual. Speech is Appropriate. Mood is euthymic, slightly anxious. Affect is congruent. Thoughts are linear and logical. No evidence of psychosis. Reviewed daily check in sheet and no reports of suicidal ideations or intent. Client Response/Progress/Benefit: [] Pt was an engaged participant in group discussion. Attentive. Pt stated stressor is changing her nighttime medications which led her to not sleep well last night. Stated she does think anxiety about the change in her nighttime medications likely contributed to her difficulty sleeping. Pt stated mental health positive as going [place] the [place] all weekend feeling more like herself. Pt reported she was able to be social with her friends. 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 Stated she is excited to get back to doing something she really loves. Seemed to benefit from support from peers. Pt to promote use of healthy coping skills, decrease anxious thoughts, and prevent decompensation.
--- NOTE | 2024-03-10 13:22 | BH.MDN ---
Multi-Disciplinary Note Note 45-min Individual: Time Started:: 11:15 Date: 03/10/24 Time Stopped:: 12:00
--- NOTE | 2024-03-11 09:05 | BH.SGPN.GN ---
Behaviors/Verbalizations/Mental Status: [] Eye contact good. Motor activity appropriate. Speech within normal limits. Affect congruent, mood content and anxious. Thoughts linear, logical, no signs of hallucinations or delusions. Reviewed client?s symptom tracker, denies SI, plan, or intent as of 03/11/2024. Client Response/Progress/Benefit: [] Client receptive of session, attentive and willing to process with group. Identified mental health ?wins? today as hearing back yesterday that she was offered a part-time job. Discussed realizing through her [employer] that she needs the structure of employment and feels part-time would be a healthy balance for her. Additional win noted as stepping out of her comfort zone and making plans to stay at a [place] with her , brother, and [id number] this weekend. Described ongoing social anxiety but feels this will be a healthy challenge in beginning to work on gaining more confidence in socializing with others. Current stressor identified as recent medication chages and feeling more fatigued as a result. Receptive of and appeared to benefit from supportive feedback and suggestions from the group. Recommended continued IOP tx to continue to improve mood stability, promote consistency of skill application, encourage reaching out to supports, and prevent decompensation. Narrative Note: []
--- NOTE | 2024-03-11 10:10 | BH.SGPN.GN ---
Behaviors/Verbalizations/Mental Status: [] Eye contact is good. Motor activity is appropriate. Appearance is casual. Speech is Appropriate. Mood is anxious. Affect is full. Thoughts are linear and logical. No evidence of psychosis. Client Response/Progress/Benefit: [] Pt an active participant in group discussions. Participated during interactive discussion on defining conflict (internal/external) and possible benefits to conflict. Attentive during psychoeducation on conflict styles (Avoidant, Accommodating, Competing, Cooperative) and engaged during interactive discussion in which peers identified the benefits and consequences to each conflict style. Benefited from increased awareness of the impact of conflict styles in mental health. Will continue in IOP tx to prevent decompensation, increase healthy coping skills, and improve functioning. Narrative Note: []
--- NOTE | 2024-03-11 11:15 | BH.SGPN.GN ---
Behaviors/Verbalizations/Mental Status: []Client alert and oriented, casually dressed and groomed. Eye contact good. Motor activity appropriate. Speech within normal limits. Affect congruent, mood euthymic. Thoughts linear, logical, no signs of hallucinations or delusions. Client Response/Progress/Benefit: []Pt was engaged throughout AEB contributing to group discussion and self-reflection. Group finished processing cues to anger worksheet. Pt contributed as group brainstormed healthy coping skills for better managing anger which included: music, walking/exercise, taking a break, reflection, and journaling. Attentive in discussion about identifying personal anger cycle. Stated will work on breathing, walking away, and self-reflection as skills/strategies to prevent unhealthy anger response. Pt appeared to benefit from identifying different techniques to manage anger as well as gaining awareness of potential consequences of unmanaged anger. Pt to continue IOP to promote use of healthy coping skills, decrease anxious thoughts, and prevent decompensation.
== END 2024-03-11 23:59 ==
LOC: BHIOP 08:00
PROVIDERS: PCP Family Medicine; Referring Provider Psychiatry & Neurology Psychiatry; Visit Provider Psychiatry & Neurology Psychiatry
DX: F33.1 Major depressive disorder, recurrent, moderate (principal); F41.1 Generalized anxiety disorder; G89.29 Other chronic pain; M25.559 Pain in unspecified hip; Z79.899 Other long term (current) drug therapy
CPT/HCPCS: S9480; 90832; 90834; 90853

== ENCOUNTER 2024-03-14 08:10 | Outpatient (RCR) | payer BC, SELFPAY ==
--- NOTE | 2024-03-11 10:10 | BH.SGPN.GN ---
Behaviors/Verbalizations/Mental Status: [] Eye contact is good. Motor activity is appropriate. Appearance is casual. Speech is Appropriate. Mood is anxious. Affect is full. Thoughts are linear and logical. No evidence of psychosis Client Response/Progress/Benefit: [] Pt responded well to session AEB contributing to small group discussion, taking notes, and listening attentively to others. Participated during interactive discussion in which pt and peers defined anger and discussed the benefits of managed anger and anger as a secondary emotion. Group identified several emotions which can drive anger which included; pain, confusion, jealously, regret, loss, embarrassment, and exhaustion. Appeared to benefit from increased knowledge of the anger cycle as well as personal triggers. Will continue IOP to prevent decompensation, increase healthy coping skills, and improve functioning. Narrative Note: []
--- NOTE | 2024-03-14 15:01 | BH.MDN ---
Multi-Disciplinary Note Note 60-min Individual: Time Started:: 12:05 Date: 03/14/24 Time Stopped:: 13:00
--- NOTE | 2024-03-15 10:00 | BH.SGPN.GN ---
Behaviors/Verbalizations/Mental Status: [] Eye contact is good. Motor activity is appropriate. Appearance is casual. Speech is Appropriate. Mood is anxious. Affect is congruent. Thoughts are linear and logical. No evidence of psychosis. Client Response/Progress/Benefit: [] Pt participated at times during the group discussions. Attentive during psychoeducation on the 4 communication styles (Passive, Passive-Aggressive, Aggressive, and Assertive) and the obstacles to effective communication. Contributed during interactive discussion on the benefits of communicating effectively. Along with peers participated during interactive discussion in which they identified the benefits and disadvantages to the different communication styles. Benefited from increased understanding of communication styles and how these can impact effective communication. Will continue in IOP to prevent decompensation, increase healthy coping, and decrease anxiety. Narrative Note: []
--- NOTE | 2024-03-15 11:05 | BH.SGPN.GN ---
Behaviors/Verbalizations/Mental Status: []Pt alert and oriented, casually dressed. Eye contact good. Motor activity appropriate. Speech within normal limits. Affect congruent, mood anxious. Thoughts linear, logical, no signs of hallucinations or delusions. Client Response/Progress/Benefit: [] Pt responded well to session AEB Pt listening attentively to others and providing input during group discussion on the pay offs and costs of the different communication styles. Pt able to connect how current communication style impacts mental health. Connected with peers? comments about importance of using assertive communication. Pt did well being assertive in the group activity and practiced using assertive communication in the role playing scenarios. Pt stated the scenarios were good practice because she recognizes if she had faced those situations in life she likely would've been passive. ?Pt seemed to benefit from increasing awareness of healthy strategies to improve communication. Will continue IOP tx to increase consistent use of healthy coping skills, promote gains, and prevent decompensation.
--- NOTE | 2024-03-16 10:15 | BH.SGPN.GN ---
Behaviors/Verbalizations/Mental Status: [] Eye contact is fair to good. Motor activity is appropriate. Appearance is casual. Speech is Appropriate. Mood is anxious. Affect is congruent. Thoughts are linear and logical. No evidence of psychosis. Client Response/Progress/Benefit: [] Pt receptive of session, actively engaged throughout AEB taking notes, providing input, and contributing in small group discussion. Appeared to connect with group topic of automatic thoughts and cognitive distortions and the impact of thought patterns on mental health, coping behaviors, and relationships. This particular group is very heavy on psychoeducation and pt appeared to connect with distortions and how they can impact functioning. Identified struggling with All or nothing and Catastrophizing distortions. Pt appeared to benefit from gaining insight on distorted thinking patterns and how this impacts overall mental health. Will continue IOP to stabilize mood, improve positive thinking, and prevent decompensation. Narrative Note: []
--- NOTE | 2024-03-16 11:15 | BH.SGPN.GN ---
Behaviors/Verbalizations/Mental Status: []Pt alert and oriented, casually dressed and groomed. Eye contact good. Motor activity appropriate. Speech within normal limits. Affect congruent, mood euthymic. Thoughts linear, logical, no signs of hallucinations or delusions Client Response/Progress/Benefit: [] Pt was an active participant during group discussion. Pt was placed in a smaller group and participated in combatting example distortions with peers. Pt was engaged in the smaller group, participated in group interactions to brainstorm answers, and appeared to be comprehending cognitive distortions. Attentive and appeared to connect with psychoeducation about different strategies to reframe/challenge distortions. Engaged in small group practice of challenging cognitive distortion examples. Benefited from gaining further insight and awareness of cognitive distortions as well as practicing ways to reframe and challenge thoughts. Will continue in IOP to promote use of healthy coping skills, challenge distortions, and prevent decompensation.
--- NOTE | 2024-03-21 14:22 | BH.COMM ---
Communication Note Communication with Client Communication Note: Pt called in reporting blurry vision, constipation, feeling cold, hand tremors, and being tired. Symptoms relayed to Dr. Jarquin who recommended that she decrease her Paxil to 20mg and to continue to monitor symptoms. Encouraged ER if symptoms worsen. Plan for patient to meet with Dr. Jarquin on 03/23/24.
--- NOTE | 2024-03-23 10:15 | BH.SGPN.GN ---
Behaviors/Verbalizations/Mental Status: []Patient was alert and oriented, casually dressed and groomed. Eye contact was good, motor activity normal, speech within normal limits. Affect constricted and tearful, mood dysthymic. Thoughts linear, logical, no signs of hallucinations or delusion Client Response/Progress/Benefit: [] Pt participated in the group discussions AEB providing input and taking notes. Attentive during psychoeducation Goal Setting. Participated during the discussion on common barriers which the group identified as: lack of motivation, not knowing where to start, not feeling good enough, and lack of support. Group also identified benefits sense of purpose, improved self-confidence, more motivation for other goals, and improved mental health. Benefited from increased awareness of mental health benefits of goals as well as psychoeducation on SMART goal criteria. Will continue in IOP to monitor medication, prevent decompensation, and help pt bounce back from recent medication side effects. Narrative Note: []
--- NOTE | 2024-03-23 11:15 | BH.SGPN.GN ---
Behaviors/Verbalizations/Mental Status: []Pt alert and oriented, casually dressed and groomed. Eye contact fair. Motor activity appropriate. Speech within normal limits. Affect congruent, mood anxious. Thoughts linear, logical, no signs of hallucinations or delusions. Client Response/Progress/Benefit: [] Pt was engaged during discussion and willing to complete the worksheet challenging them to develop a personal SMART goal. Pt chose the goal of being patient while she is going through new medication changes. Pt stated this will give her time to find an appropriate medication and feel better. Pt stated not feeling well and withdrawal symptoms from medications as potential barriers. Identified solutions as getting up and doing something and focusing on what is within her control. Benefited from this group by developing a short-term SMART goal related to mental health. Will continue IOP tx to stabilize medications, continue use of healthy coping skills, and prevent decompensation.
--- NOTE | 2024-03-23 12:05 | PCM.BH.PN ---
Progress Note Progress Note: History of Present Illness/Interim History: The patient is a 58-year-old female with a history of depression and anxiety who is seen in follow-up at the [facility] behavioral health [facility]. I last saw the patient 2 weeks ago and at that time her Paxil was increased to 40 mg daily. Patient then told staff she was having blurred vision, bilateral tremor in her arms only, continuation of constipation and feeling anxious. She felt that her mood was worsening and she feels depressed and agitated. She was told to decrease her Paxil back down to 20 mg 2 days ago but symptoms have somewhat persisted. She is still sleeping okay at night. But she is concerned that her mood seems to have relapsed. Patient ruminates negatively about having side effects and cries easily. She denies passive thoughts of , plan for suicide, suicidal ideation, homicidal ideation, hallucinations or delusions or symptoms of sanket. Current Psychiatric Medications: [] Paxil increased to 40 mg 2 weeks ago but decreased to 20 mg 2 days ago due to side effects; Cymbalta weaned and discontinued 5 weeks ago for side effects; trazodone 50 to 100 mg at bedtime which she takes only as needed; Seroquel 12.5 mg p.o. twice daily (x 9 weeks now); Klonopin 1 mg p.o. nightly Mental Status Examination: [] The patient is a 58-year-old female who appears normal for stated age and is casually dressed and groomed with good hygiene. She is ambulatory with a normal gait and has no psychomotor agitation or retardation. Tremor is not visible. Eye contact is good and speech is normal rate and rhythm and fluent with no pressure. Mood is depressed and anxious. Affect is dysphoric with frequent sobbing. Thought process is goal-directed and organized. Thought content: The patient ruminates that she will get bad again and is upset she keeps having side effects on medications. There is no evidence of passive thoughts of , suicidal ideation, plan for suicide, homicidal ideation, hallucinations or delusions or symptoms of sanket. Reality testing is intact. Judgment is intact. Insight is fair. Diagnoses: [] 1. Major depressive disorder, recurrent, moderate 2. Generalized anxiety disorder 3. Chronic hip pain Plan: [] The patient will continue the [facility] as the structure, support, education and group therapy will hopefully prevent worsening of her symptoms. She felt safe during the interview and if it anytime she does not feel safe she agrees to let us know or go to the emergency room. The risk, options, possible complications and side effects of the medications were again discussed with the patient and she understands accepts these. The patient agrees to stop the Paxil as the side effects are greatly depressing her. She agrees to stop trazodone also as it could be contributing to the excess serotonin. She understands she does not have serotonin syndrome. She is advised to get [employer] testing since she has a lot of side effects on relatively low doses of a number of medications now. She will continue her Klonopin at bedtime. She will increase her Seroquel to 25 mg p.o. nightly and 12.5 mg p.o. in the morning to help with anxiety and depression. If she does not sleep on 25 mg of Seroquel she can increase to 50 mg at bedtime. I will see the patient in 1 week to see if the side effect symptoms are wearing off after discontinuing the Paxil. If patient's symptoms worsen she will let us know or go to the emergency room. If tremor does not resolve may add propranolol 10 mg p.o. twice daily. Will consider adding another antidepressant when side effects wear off. Patient already had akathisia on Abilify in the past and side effects on a number of other antidepressants except for Celexa which she has been off for about 4 months now. Could consider retrying Celexa since she tolerated it in the past and it helped her. She will continue to follow-up with her outpatient providers and I will see the patient in follow-up in 1 week.
--- NOTE | 2024-03-23 14:14 | BH.MDN_ITS ---
Multi-Disciplinary Note Note 30-min Individual: Time Started:: 09:02 Date: 03/23/24 Purpose of session/treatment goals addressed:: Purpose of session was to address goals 1 and 2 from [facility]. Eye Contact:: Fair Motor Activity:: Restless Appearance:: Casual Speech:: Rambling Mood:: Anxious and Depressed Affect:: Labile Thoughts:: Circular and No evidence of hallucinations/delusions noted Staff Interventions:: thought challenging, CBT techniques, mindfulness skills, discharge planning, strengths perspective, goal setting and other (Reviewed healthy coping skills) Client Response:: Client stated several days after increasing her Paxil last week she noticed herself significantly start to decline. Client stated over the weekend she was back to square 1. Client stated she did not get out of bed unless her told her to. Client stated she has been feeling like she did when she first started PHP 7 weeks ago. Client reported she has been using the opposite action to make her self make dinner and doing little things around the house because she knows that helps her before. Client stated she has been more tearful, and no motivation, high anxiety, and constant worry. Client reports she had a panic attack yesterday and just keeps having thoughts that she is not every to get back to herself. Client stated she does think it is connected to the increase in Paxil 30 mg because there has not really been anything else going on that would trigger this increase in anxiety and depression. Client expressed frustration with her medication challenges which feeds her anxious thoughts that she will never get back to how she used to be. Client somewhat receptive to thought challenging with the assistance of therapist. Therapist attempted to help client see all the progress she has made and despite medication challenges she is using skills. Therapist help client see that 7 weeks ago she never thought she would get any glimmer of herself back but she had seen progress for the last few weeks until this medication increase. Discussed client was supposed to discharge from [facility] tomorrow but given medication setback and necessary medication changes that will have to be made therapist recommended client to extend her IOP time for at least another week. Risks/Concerns:: Client denies active suicidal ideation, plan, or intention. Progress Toward Goals/Plan:: Client notes decompensation in progress and worsening symptoms since her medication increase last Thursday to 30mg Paxil. Client noted starting feeling more weepy, not wanting to get out of bed, increased anxiety, shaking hands, and not enjoying anything since last Thursday. Client noted panic attack yesterday. Client stated she believes the medication change is causing these symptoms. Client stated she is having increased worries that she will never find the right medication and will never get back to herself. Plan is for client to meet with IOP psychiatrist today to develop medication plan. Client was to graduate IOP tomorrow, but due to negative medication reaction and increased symptomology client will extend her IOP time an additional week. Time Stopped:: 09:32
--- NOTE | 2024-03-24 09:05 | BH.SGPN.GN ---
Behaviors/Verbalizations/Mental Status: [] Pt alert and oriented, neatly dressed and groomed. Eye contact good. Motor activity appropriate. Speech within normal limits. Affect congruent--tearful, mood anxious. Thoughts linear, logical, no signs of hallucinations or delusions. Reviewed pt?s symptom tracker, no risk for suicidal ideation, plan, or intent 03/24/24 Client Response/Progress/Benefit: []Pt responded well to session, attentive and engaged. Pt reports feeling tired, nervous, and depressed this morning. Pt had a recent setback with her mood potentially due to medications and this has triggered severe anxiety and negative thinking. Pt stated my meds are all jacked up and I'm very negative. Pt receptive to group feedback and support which pt appeared to benefit from. Pt struggled to give herself any credit on her progress, but she did recognize that she got to IOP today when she could have canceled. Pt will continue with IOP tx to adjust medications and prevent further decompensation. Narrative Note: []
--- NOTE | 2024-03-24 10:10 | BH.SGPN.GN ---
Behaviors/Verbalizations/Mental Status: [] Eye contact is good. Alert and oriented. Motor activity is appropriate. Appearance is casual. grooming is appropriate. Speech is Appropriate. Mood is anxious and depressed. Affect is congruent. Thoughts are linear and logical. No evidence of psychosis or hallucinations. Client Response/Progress/Benefit: [] Client was an active participate AEB listening attentively to others, participating in group discussions, and taking notes throughout. Participated as the group identified the impact of emotions on communication such as change in tone, body language, shutting down, misperceiving the communication, and willingness to communicate. Participated with peers to identified reasons why one stuffs emotions which include; to avoid conflict, not draw attention to struggles, being emotional can be perceived as a weakness, and it can make when feel vulnerable.Participated during group activity. Client benefited from session by gaining an increased understanding on the importance of managing emotions to improve daily functioning. Client will continue IOP to stablize anxiety, increase healthy coping, prevent decompensation, and to improve functioning. Narrative Note: []
--- NOTE | 2024-03-24 11:15 | BH.SGPN.GN ---
Behaviors/Verbalizations/Mental Status: []Pt alert and oriented, casually dressed and well groomed. Eye contact fair. Motor activity appropriate. Speech within normal limits. Affect constricted, mood anxious and dysthymic. Thoughts linear, logical, no signs of hallucinations or delusions. Client Response/Progress/Benefit: [] Pt engaged in session AEB Pt listening attentively to peers and providing input. Attentive during psychoeducation on 4 zones of regulation. Pt able to identify feelings and behaviors for each zone. Pt identified coping skills one can use to support self in each zone. Pt wants to practice mindfulness and meditation to help move from yellow to green or blue zone. Benefited from increased education on zones of regulation or stages of alertness for emotions and healthy coping skills to use for each zone. Will continue IOP tx to increase consistent use of healthy coping skills, challenge negative thoughts, and prevent decompensation.
--- NOTE | 2024-03-28 11:53 | PCM.BH.PN_ITS ---
Progress Note Progress Note: History of Present Illness/Interim History: The patient is a 58-year-old female with a history of depression and anxiety who is seen in follow-up at the [facility] behavioral health [facility]. I last saw the patient 1 week ago and at that time we discontinued her Paxil and trazodone due to side effects of tremor, increased anxiety, increased depression and blurred vision that the patient felt was serotonin syndrome. The patient had symptoms of possibly excess serotonin but not serotonin syndrome. She continues to have constipation and has had no diarrhea. The patient states that yesterday she felt even more shaky and called her therapist sobbing and the therapist sent her to the emergency room. She was seen in [place] emergency room and they gave her a Klonopin and 12.5 mg of Seroquel and discharged her. Patient then drove to the [facility] for her appointment here. The patient states that her blurred vision has resolved and her tremor comes and goes and is not severe right now. When she becomes anxious she panics and feels that she is going to end up in a [place] and wonders and is afraid that I will never get better. Sleep is okay overall but patient ruminates extensively about having side effects on medications and cries easily. She denies passive thoughts of , plan for suicide, homicidal ideation, suicidal ideation, hallucinations or delusions or symptoms of sanket. Current Psychiatric Medications: [] Paxil discontinued 1 week ago for side e ffects; Cymbalta discontinued 5 weeks ago for side effects; Seroquel increased to 25 mg p.o. nightly and 12.5 mg in the morning (x 1 week now); Klonopin 1 mg p.o. nightly. Mental Status Examination: [] The patient is a 58-year-old female who appears normal for stated age and is casually dressed and groomed with good hygiene. She is ambulatory with a normal gait and has no psychomotor agitation or retardation. Tremor is not visible. Eye contact is good and speech is normal rate and rhythm and fluent with no pressure. Mood is anxious and depressed. Affect is dysphoric with frequent sobbing. Thought process is goal- directed and organized. Thought content: The patient continues to ruminate that she will get bad again and or never get better. There is no evidence of passive thoughts of , suicidal ideation, plan for suicide, homicidal ideation, hallucinations, delusions or symptoms of sanket. Reality testing is intact. Judgment is intact. Insight is fair but limited. Diagnoses: [] 1. Major depressive disorder, recurrent, moderate 2. Generalized anxiety disorder Plan: [] The patient will continue the IOP as the structure, support, education and group therapy will hopefully prevent worsening of her symptoms. She felt safe during the interview and if it anytime she does not feel safe she agrees to let us know or go to the emergency room. The risk, options, possible complications and side effects of the medications were again discussed with the patient and she understands and accepts these. The patient agrees to increase her Klonopin to 1 mg p.o. at bedtime and 0.5 mg p.o. in the morning. She agrees to increase her Seroquel to 50 mg p.o. nightly and 25 mg p.o. every morning. She understands that this may make her feel tired but if she feels tired it is okay to rest and relax until we can get this anxiety under control. When the [employer] results are back in a day or 2 we may add an SSRI if there is one that she can metabolize well. Patient states that years ago she took Celexa without difficulty. She will continue to follow-up with her outpatient providers and I will see the patient in follow-up in 1 week.
--- NOTE | 2024-03-28 15:00 | BH.COMM ---
Communication Note Communication with Client Communication Note: Pt called into IOP a couple hours after meeting with program psychiatrist. She reported taking a nap and woke up with milady azar. She believes that her somatic symptoms and anxiety are the result of Seroquel side effects as she was taken off SSRIs last week. Concern was communicated to Dr. Jarquin who stated that pt could stop the Seroquel. Dr. Jarquin recommended that pt start Zyprexa 2.5mg twice daily and Propranolol 10mg PO BID. Due to side effects from SSRIs, Abilify, and now Seroquel she felt that Zyprexa could be a fast acting medication to help with anxiety as its often prescribed to patients with side effects from SSRIs. Orders communicated to program nurse who will call into pharmacy. Pt completed [employer] testing and we are awaiting the results.
--- NOTE | 2024-03-30 15:01 | BH.COMM ---
Communication Note Communication with Client Communication Note: Pt called in this afternoon reporting drowsiness related to medications. Reports that she has been researching her medications and feels that Seroquel may have been the cause of the somatic issues last week. She wants to restart the Paxil 20mg. She reports that her blurred vision, tremors, and restlessness have resolved as primary concern is drowsiness and feeling low. Reports improvement from last week. Communicated concerns to Dr. Jarquin she does not recommend restarting Paxil as somatic issues occurred after Paxil was increased to 30mg. Her previous somatic complaints were unlikely due to Seroquel as it was a low dose. She is willing to call in a prescription for Celexa 10mg as pt was on this anti-depressant for several years w/o any side effects. Also recommended that pt stop taking Zyprexa 2.5mg in the AM. If the patient also feels drowsy in the AM she can stop Klonopin .05mg in the AM as well.
--- NOTE | 2024-04-06 12:06 | PCM.BH.PN ---
Progress Note Progress Note: History of Present Illness/Interim History: The patient is a 58-year-old female with a history of depression and anxiety who is seen in follow-up at the [facility]. Last saw the patient about 1 week ago and at that time propranolol 10 mg twice daily was added to her medication regimen and her Seroquel was changed to Zyprexa. The patient states that she did not take the propranolol except for 1 day because it made her tired. She states that she feels that she slept better on Seroquel than she does on Zyprexa. She states she is sleeping 3 to 4 hours a night now but gets up when she cannot sleep and goes out and watches TV walks around the house. Then she lies in bed all day the next day and feels depressed. She complained of fatigue several days ago so we discontinued her morning Klonopin and her morning Zyprexa dose. The patient started taking Celexa 10 mg daily about 4 days ago as she has done well on this in the past. Her tremors and feeling anxious have completely resolved now after discontinuing the Paxil. She has low energy and feels somewhat groggy during the day. She was doing better but then several days ago her symptoms worsened and she is unsure of what triggers this. [employer] Messenger[employer] results were obtained I discussed them with the patient in detail and a copy of them was given to her. She has no significant interactions with any medications. She is in the green zone for all of them. Patient continues to ruminate negatively and panic that I will never get better. She denies passive thoughts of , plan for suicide, homicidal ideation, suicidal ideation, hallucinations or delusions. 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 Current Psychiatric Medications: [] Paxil discontinued 2 weeks ago for side effects; Cymbalta discontinued several weeks ago for side effects; Seroquel discontinued for contributing to side effects; Klonopin 1 mg p.o. nightly; propranolol 10 mg p.o. twice daily but patient never started this. Mental Status Examination: [] The patient is a 58-year-old female who appears normal for stated age and is casually dressed and groomed with good hygiene. She has no psychomotor agitation or retardation and no tremor is visible. Eye contact is good and speech is normal rate and rhythm and fluent with no pressure. Mood is depressed. Affect is full and normal. The patient does not cry during the interview. Thought process is goal-directed and organized. Thought content: The patient continues to ruminate that she will get bad again or never get better. There is no evidence of passive thoughts of , suicidal ideation, plan for suicide, homicidal ideation, hallucinations or delusions. Reality testing is intact. Judgment is intact. Insight is fair but limited. Diagnoses: [] 1. Major depressive disorder, recurrent, moderate 2. Generalized anxiety disorder Plan: [] The patient wishes to discharge from the IOP program today as she feels that she completed the course through 1 time and does not feel she will benefit from more of the courses. She felt safe during the interview and if it anytime she does not feel safe she agrees to let us know or go to the emergency room. In addition she wants to start her part-time job soon. She agrees to discontinue Zyprexa and she will take Seroquel 50 mg p.o. at bedtime. In addition she will continue her Klonopin as prescribed and her Celexa 10 mg p.o. daily. Patient had significant side effects intended to perseverate on them so any changes in medication should be done carefully. She will continue to follow-up with her outpatient providers.
== END 2024-04-06 12:30 | disposition home or self-care (01) ==
LOC: BHIOP 08:10
PROVIDERS: PCP Family Medicine; Referring Provider Psychiatry & Neurology Psychiatry; Visit Provider Psychiatry & Neurology Psychiatry
DX: F33.1 Major depressive disorder, recurrent, moderate (principal); F41.9 Anxiety disorder, unspecified; Z79.899 Other long term (current) drug therapy
CPT/HCPCS: S9480; 90832; 90834; 90853